=== PATIENT | male | born 1960 | race Caucasian/White ===

== ENCOUNTER 2016-12-01 00:05 | Emergency (ER) | payer MEDICARE ==
[2016-12-01] MEDS ORDERED: ASPIRIN 81 MG TABLET, CHEWABLE PO ONE (00:06)
[2016-12-01 01:04] LABS: ABSOLUTE BASOPHILS # (AUTO) 0.1 10^3/uL (0.0-0.2); ABSOLUTE EOSINOPHILS # (AUTO) 0.3 10^3/uL (0.0-0.6); ABSOLUTE LYMPHOCYTES (AUTO) 2.1 10^3/uL (0.5-4.7); ABSOLUTE MONOCYTES (AUTO) 0.9 10^3/uL (0.1-1.4); ABSOLUTE NEUT (AUTO) 7.2 10^3/uL (1.7-8.2); BASOPHILS % (AUTO) 0.7 % (0-2); EOSINOPHILS % (AUTO) 2.8 % (0-6); HEMATOCRIT 47.8 % (37.9-51.0); HEMOGLOBIN 15.6 g/dL (13.5-17.0); LYMPHOCYTES % (AUTO) 19.6 % (13-45); MEAN CORPUSCULAR HEMOGLOBIN 32.1 pg (27.0-33.4); MEAN CORPUSCULAR HGB CONC 32.7 g/dL (32.0-36.0); MEAN CORPUSCULAR VOLUME 98 fl (80-97); MONOCYTES % (AUTO) 8.8 % (3-13); RED BLOOD COUNT 4.88 10^6/uL (4.35-5.55); RED CELL DISTRIBUTION WIDTH 13.2 % (11.5-14.0); SEGMENTED NEUTROPHILS % (AUTO) 68.1 % (42-78); WHITE BLOOD COUNT 10.5 10^3/uL (4.0-10.5)
[2016-12-01 01:24] LABS: PROTHROMBIN TIME 12.4 SEC (11.4-15.4)
[2016-12-01 01:32] LABS: CREATINE KINASE MB 1.24 ng/mL (<4.55); TROPONIN I 0.016 ng/mL
[2016-12-01 01:48] LABS: ALANINE AMINOTRANSFERASE 61 U/L (21-72); ALBUMIN 3.6 g/dL (3.5-5.0); ALKALINE PHOSPHATASE 87 U/L (38-126); ANION GAP 11 (5-19); ASPARTATE AMINO TRANSFERASE 27 U/L (17-59); BILIRUBIN,TOTAL 0.6 mg/dL (0.2-1.3); BLOOD UREA NITROGEN 16 mg/dL (7-20); CALCIUM 9.3 mg/dL (8.4-10.2); CARBON DIOXIDE 24 mmol/L (22-30); CHLORIDE 104 mmol/L (98-107); CREATINE KINASE 127 U/L (55-170); CREATININE RESULT 0.93 mg/dL (0.52-1.25); GLUCOSE 107 mg/dL (75-110); POTASSIUM 3.8 mmol/L (3.6-5.0); SODIUM 138.5 mmol/L (137-145); TOTAL PROTEIN 6.3 g/dL (6.3-8.2)
[2016-12-01] MEDS ORDERED: ALBUTEROL SULFATE 0.083% NEB 2.5 MG/3 ML AMPUL NEB ONE (01:57)
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
[2016-12-01] MEDS ORDERED: NORMAL SALINE 1000 ML 1,000 ML IV ONE (10:25)
--- NOTE | 2016-12-01 11:12 | ER Document Report ---
Doctor's Note Notes: 12/01/16 11:11 pt reevalauted and is stable at this time transport is here for trhe patient
[2016-12-01 11:21] VITALS: BP 118/86
--- NOTE | 2016-12-01 12:53 | EKG REPORT ---
SEVERITY:- ABNORMAL ECG - SINUS RHYTHM NONSPECIFIC INTRAVENTRICULAR CONDUCTION DELAY : Confirmed by: Odalis Peters MD 01-Dec-2016 12:52:43
== END 2016-12-01 11:21 | disposition short-term general hospital (02) ==
LOC: ER 00:05
DX: R07.9 Chest pain, unspecified (principal); F17.200 Nicotine dependence, unspecified, uncomplicated; E78.00 Pure hypercholesterolemia, unspecified; I10 Essential (primary) hypertension; I25.2 Old myocardial infarction; Z95.0 Presence of cardiac pacemaker; Z88.6 Allergy status to analgesic agent
CPT/HCPCS: 93005; 94640; 99285; 36415; 82553; 82550; 85025; 85610; 80053; 84484; 71010; 93010; A9270 ×2; J7030

== ENCOUNTER 2017-09-30 16:19 | Emergency (ER) | payer MEDICARE, MEDICAID ==
[2017-09-30 16:44] VITALS: BP 127/68
[2017-09-30] MEDS ORDERED: CEFTRIAXONE INJ 1000 MG VIAL IM ONE (18:25)
[2017-09-30] MEDS ORDERED: LIDOCAINE 1% INJ-PF (10 MG/ML) 30 ML SDV INJ ONE (18:25)
[2017-09-30] MEDS ORDERED: NYSTATIN/TRIAMCIN OINTMENT 15 GM TP ONE (18:25)
[2017-09-30] MEDS ORDERED: AZITHROMYCIN 250 MG TABLET PO ONE (18:26)
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
[2017-09-30] MEDS ORDERED: NYSTATIN/TRIAMCIN OINTMENT 15 GM ONE (18:49)
[2017-09-30 18:56] LABS: APPEARANCE,URINE CLEAR; BILIRUBIN,URINE NEGATIVE (NEGATIVE); GLUCOSE, URINE NEGATIVE (NEGATIVE); KETONES,URINE NEGATIVE (NEGATIVE); LEUKOCYTE ESTERASE,URINE TRACE (NEGATIVE); NITRITE,URINE NEGATIVE (NEGATIVE); PROTEIN,URINE NEGATIVE (NEGATIVE); URINE SPECIFIC GRAVITY 1.027
== END 2017-09-30 19:44 | disposition home or self-care (01) ==
LOC: ER 16:19
DX: N48.89 Other specified disorders of penis (principal); N48.1 Balanitis; F17.210 Nicotine dependence, cigarettes, uncomplicated; E78.00 Pure hypercholesterolemia, unspecified; I10 Essential (primary) hypertension; Z95.810 Presence of automatic (implantable) cardiac defibrillator; Z90.49 Acquired absence of other specified parts of digestive tract; Z88.6 Allergy status to analgesic agent
CPT/HCPCS: 99283; 96372; 87070; 87205; 87210; 87075; 87077; 81001; 87186; A9270; J3490 ×2; J0696

== ENCOUNTER 2019-07-29 09:32 | Day surgery (SDC) | payer MEDICARE, MEDICAID ==
[~2019-07-29 09:32] MED LIST: PROPOFOL INJ 200 MG/20 ML VIAL IV ONE
[2019-07-29 12:00] VITALS: BP 105/58
--- NOTE | 2019-07-29 14:03 | Operative Report ---
Operative Report DATE OF SURGERY: 07/29/19 Operative Report: The risks, benefits and alternatives of the procedure including the risk of bleeding, perforation requiring surgery have been explained to the patient in detail and informed consent has been obtained. Patient is placed in a left, lateral decubital position. Timeout was called. Propofol medication is administered. Rectal examination is done which did not reveal any masses, tears or fissures. An Olympus videoscope was introduced into the patient's rectum. Scope was then carefully advanced all the way to the cecum. Cecum was identified by the usual anatomical landmarks including the ileocecal valve as well as the appendiceal office. Photodocumentation is obtained. Scope was then sequentially pulled back via the various segments of the colon including the ascending colon, hepatic flexure, transverse colon, splenic flexure, descending colon and finally into the rectosigmoid portions of the colon. Retroflexion maneuvers performed. PREOPERATIVE DIAGNOSIS: Personal history of polyp POSTOPERATIVE DIAGNOSIS: Descending colon polyp that was removed via snare polypectomy and retrieved. Internal hemorrhoids OPERATION: Colonoscopy with snare polypectomy SURGEON: MITZY MIDDLETON ANESTHESIA: LMAC TISSUE REMOVED OR ALTERED: As noted above. COMPLICATIONS: None. ESTIMATED BLOOD LOSS: None. INTRAOPERATIVE FINDINGS: As noted above. PROCEDURE: Patient tolerated the procedure well. No immediate postprocedure complications are noted. Patient is discharged in good condition. Discharge date 07/29/2019. Discharge diet: Regular. Discharge activity: Regular. 2 to 3-week follow-up to discuss findings. Patient is instructed to call the office or proceed to the emergency room should there be any further questions. Wait on the pathology. 5-year surveillance colonoscopy.
== END 2019-07-29 12:00 | disposition home or self-care (01) ==
LOC: END 09:32
PROVIDERS: ATTEND Internal Medicine Gastroenterology
DX: D12.4 Benign neoplasm of descending colon (principal); K64.8 Other hemorrhoids; Z86.010 Personal history of colon polyps; Z80.0 Family history of malignant neoplasm of digestive organs; E78.5 Hyperlipidemia, unspecified; I25.10 Atherosclerotic heart disease of native coronary artery without angina pectoris; K21.9 Gastro-esophageal reflux disease without esophagitis; F17.210 Nicotine dependence, cigarettes, uncomplicated; Z79.82 Long term (current) use of aspirin; Z79.899 Other long term (current) drug therapy
CPT/HCPCS: 45385; 88305 ×2; J2704; 811

== ENCOUNTER 2019-08-10 15:41 | Emergency (ER) | payer MEDICARE, MEDICAID ==
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
--- NOTE | 2019-08-10 16:14 | RADIOLOGY REPORT (SQ) ---
EXAM DESCRIPTION: CHEST SINGLE VIEW COMPLETED DATE/TIME: 08/10/2019 4:03 pm REASON FOR STUDY: dyspnea COMPARISON: 12/01/2016. EXAM PARAMETERS: NUMBER OF VIEWS: One view. TECHNIQUE: Single frontal radiographic view of the chest acquired. RADIATION DOSE: NA LIMITATIONS: None. FINDINGS: LUNGS AND PLEURA: No opacities, masses or pneumothorax. No pleural effusion. MEDIASTINUM AND HILAR STRUCTURES: No masses. Contour normal. HEART AND VASCULAR STRUCTURES: Heart normal in size. Normal vasculature. BONES: No acute findings. Old right rib fracture. HARDWARE: Defibrillator. OTHER: No other significant finding. IMPRESSION: NO ACUTE RADIOGRAPHIC FINDING IN THE CHEST. TECHNICAL DOCUMENTATION: JOB ID: [id number] [employer]- All Rights Reserved Reading location - IP/workstation name: [email or web address]
[2019-08-10] MEDS ORDERED: DILTIAZEM HCL INJ 25 MG/5 ML VIAL IV ONE (16:18)
[2019-08-10] MEDS ORDERED: DILTIAZEM HCL/D5W 125 MG/125 ML RTUINJ IV PRN (16:19)
[2019-08-10 16:24] LABS: ABSOLUTE BASOPHILS # (AUTO) 0.1 10^3/uL (0.0-0.2); ABSOLUTE EOSINOPHILS # (AUTO) 0.2 10^3/uL (0.0-0.6); ABSOLUTE LYMPHOCYTES (AUTO) 2.5 10^3/uL (0.5-4.7); ABSOLUTE MONOCYTES (AUTO) 1.1 10^3/uL (0.1-1.4); ABSOLUTE NEUT (AUTO) 9.9 10^3/uL (1.7-8.2); BASOPHILS % (AUTO) 0.6 % (0-2); EOSINOPHILS % (AUTO) 1.6 % (0-6); HEMATOCRIT 49.4 % (37.9-51.0); HEMOGLOBIN 16.9 g/dL (13.5-17.0); LYMPHOCYTES % (AUTO) 18.2 % (13-45); MEAN CORPUSCULAR HEMOGLOBIN 32.3 pg (27.0-33.4); MEAN CORPUSCULAR HGB CONC 34.3 g/dL (32.0-36.0); MEAN CORPUSCULAR VOLUME 94 fl (80-97); MONOCYTES % (AUTO) 7.6 % (3-13); PLATELET COUNT 285 10^3/uL (150-450); RED BLOOD COUNT 5.24 10^6/uL (4.35-5.55); RED CELL DISTRIBUTION WIDTH 13.3 % (11.5-14.0); TOTAL CELLS COUNTED % (AUTO) 100 %; WHITE BLOOD COUNT 13.8 10^3/uL (4.0-10.5)
[2019-08-10 16:47] LABS: INTERNATIONAL RATION (INR) 0.99; PROTHROMBIN TIME 13.1 SEC (11.4-15.4)
[2019-08-10 17:18] LABS: ALBUMIN 4.4 g/dL (3.5-5.0); ALKALINE PHOSPHATASE 102 U/L (38-126); ANION GAP 12 (5-19); ASPARTATE AMINO TRANSFERASE 41 U/L (17-59); BILIRUBIN,DIRECT 0.1 mg/dL (0.0-0.4); BLOOD UREA NITROGEN 14 mg/dL (7-20); CALCIUM 9.9 mg/dL (8.4-10.2); CARBON DIOXIDE 22 mmol/L (22-30); CHLORIDE 104 mmol/L (98-107); GLUCOSE 117 mg/dL (75-110); POTASSIUM 3.9 mmol/L (3.6-5.0); TOTAL PROTEIN 7.5 g/dL (6.3-8.2)
[2019-08-10 17:34] LABS: TROPONIN I 0.417 ng/mL
[2019-08-10] MEDS ORDERED: ASPIRIN 81 MG TABLET, CHEWABLE PO ONE (17:42)
[2019-08-10] MEDS ORDERED: DILTIAZEM HCL 120 MG CAP.SR.24H PO ONE (18:19)
[2019-08-10] MEDS ORDERED: METOPROLOL SUCCINATE 50 MG TAB.SR.24H PO ONE (18:19)
[2019-08-10] MEDS ORDERED: METOPROLOL TARTRATE PF/INJ 5 MG/5 ML SDV IV ONE (19:13)
--- NOTE | 2019-08-10 19:18 | EKG REPORT ---
SEVERITY:- ABNORMAL ECG - AFIB/FLUT AND V-PACED COMPLEXES LOW VOLTAGE IN FRONTAL LEADS NONSPECIFIC T ABNORMALITIES, LATERAL LEADS BORDERLINE PROLONGED QT INTERVAL : Confirmed by: Odalis Peters MD 10-Aug-2019 19:17:59
[2019-08-10 21:49] VITALS: BP 107/59
== END 2019-08-10 21:45 | disposition short-term general hospital (02) ==
LOC: ER 15:41
DX: I48.91 Unspecified atrial fibrillation (principal); I21.4 Non-ST elevation (NSTEMI) myocardial infarction; Z95.810 Presence of automatic (implantable) cardiac defibrillator; I25.10 Atherosclerotic heart disease of native coronary artery without angina pectoris; I25.2 Old myocardial infarction; R07.89 Other chest pain; R06.02 Shortness of breath; Z95.5 Presence of coronary angioplasty implant and graft; Z87.891 Personal history of nicotine dependence; Z88.6 Allergy status to analgesic agent
CPT/HCPCS: 93005; 36415; 83735; 85025; 85610; 80053; 84484; 83880; 71045; 93010; A9270 ×3; J3490; 96365; 96366; 99291

== ENCOUNTER 2019-08-26 11:12 | Observation (INO) | payer MEDICARE, MEDICAID ==
[2019-08-26] MEDS ORDERED: ASPIRIN 81 MG TABLET, CHEWABLE PO ONE (11:13)
[2019-08-26 11:45] LABS: APPEARANCE,URINE CLEAR; BILIRUBIN,URINE NEGATIVE (NEGATIVE); COLOR,URINE STRAW; GLUCOSE, URINE NEGATIVE (NEGATIVE); KETONES,URINE NEGATIVE (NEGATIVE); LEUKOCYTE ESTERASE,URINE NEGATIVE (NEGATIVE); NITRITE,URINE NEGATIVE (NEGATIVE); PROTEIN,URINE NEGATIVE (NEGATIVE); URINE SPECIFIC GRAVITY 1.009; UROBILINOGEN,URINE NEGATIVE mg/dL (<2.0)
[2019-08-26 11:45] LABS: HEMATOCRIT 48.2 % (37.9-51.0); HEMOGLOBIN 16.3 g/dL (13.5-17.0); MEAN CORPUSCULAR HGB CONC 33.8 g/dL (32.0-36.0); MEAN CORPUSCULAR VOLUME 95 fl (80-97); PLATELET COUNT 315 10^3/uL (150-450); RED BLOOD COUNT 5.09 10^6/uL (4.35-5.55); RED CELL DISTRIBUTION WIDTH 12.8 % (11.5-14.0); WHITE BLOOD COUNT 11.1 10^3/uL (4.0-10.5)
[2019-08-26 11:57] LABS: ALBUMIN 4.4 g/dL (3.5-5.0); ALKALINE PHOSPHATASE 94 U/L (38-126); ANION GAP 10 (5-19); ASPARTATE AMINO TRANSFERASE 39 U/L (17-59); BILIRUBIN,DIRECT 0.2 mg/dL (0.0-0.4); BILIRUBIN,TOTAL 0.8 mg/dL (0.2-1.3); BLOOD UREA NITROGEN 12 mg/dL (7-20); CARBON DIOXIDE 25 mmol/L (22-30); CHLORIDE 104 mmol/L (98-107); CREATINE KINASE 119 U/L (55-170); GLUCOSE 115 mg/dL (75-110); POTASSIUM 4.9 mmol/L (3.6-5.0); TOTAL PROTEIN 7.7 g/dL (6.3-8.2)
[2019-08-26 12:06] LABS: ABSOLUTE LYMPHOCYTES# (MANUAL) 2.1 10^3/uL (0.5-4.7); BASOPHILS % (MANUAL) 1 % (0-2); EOSINOPHILS % (MANUAL) 3 % (0-6); LYMPHOCYTES % (MANUAL) 14 % (13-45); MONOCYTES % (MANUAL) 9 % (3-13); RBC MORPHOLOGY COMMENT NORMO-CYTIC/CHROMIC; SEGMENTED NEUTROPHILS % (MAN) 68 % (42-78); TOTAL CELLS COUNTED 100
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
[2019-08-26 12:07] LABS: PLATELET COMMENT ADEQUATE
[2019-08-26 12:11] LABS: CREATINE KINASE MB 2.16 ng/mL (<4.55)
[2019-08-26 12:15] LABS: TROPONIN I < 0.012 ng/mL
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
--- NOTE | 2019-08-26 13:30 | RADIOLOGY REPORT (SQ) ---
EXAM DESCRIPTION: CHEST 2 VIEWS COMPLETED DATE/TIME: 08/26/2019 1:00 pm REASON FOR STUDY: CP COMPARISON: 08/10/2019. EXAM PARAMETERS: NUMBER OF VIEWS: two views TECHNIQUE: Digital Frontal and Lateral radiographic views of the chest acquired. RADIATION DOSE: NA LIMITATIONS: none FINDINGS: LUNGS AND PLEURA: No opacities, masses or pneumothorax. No pleural effusion. MEDIASTINUM AND HILAR STRUCTURES: No masses or contour abnormalities. HEART AND VASCULAR STRUCTURES: Heart normal size. No evidence for failure. BONES: No acute findings. Old rib fractures. HARDWARE: Defibrillator. OTHER: No other significant finding. IMPRESSION: NO ACUTE RADIOGRAPHIC FINDING IN THE CHEST. TECHNICAL DOCUMENTATION: JOB ID: [id number] [employer]- All Rights Reserved Reading location - IP/workstation name: [email or web address]
[2019-08-26] MEDS ORDERED: NITROGLYCERIN 2% OINTMENT 1 GM PACKET TP ONE (13:39)
[2019-08-26] MEDS ORDERED: ONDANSETRON HCL INJ/PF 4 MG/2 ML SDV IV PRN (14:19)
[2019-08-26] MEDS ORDERED: ACETAMINOPHEN 325 MG TABLET PO PRN (14:19)
[2019-08-26] MEDS ORDERED: MAG HYDROX/AL HYDROX/SIMETH SUSP 30 ML UDCUP PO PRN (14:19)
[2019-08-26] MEDS ORDERED: NORMAL SALINE 1000 ML 1,000 ML IV PRN (14:19)
[2019-08-26] MEDS ORDERED: ZOLPIDEM TARTRATE 5 MG TABLET PO PRN (14:19)
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
--- NOTE | 2019-08-26 16:55 | EKG REPORT ---
SEVERITY:- ABNORMAL ECG - SINUS RHYTHM MULTIPLE ATRIAL PREMATURE COMPLEXES NONSPECIFIC INTRAVENTRICULAR CONDUCTION DELAY LOW VOLTAGE IN FRONTAL LEADS BORDERLINE R WAVE PROGRESSION, ANTERIOR LEADS : Confirmed by: Odalis Peters MD 26-Aug-2019 16:53:42
[2019-08-26] MEDS ORDERED: APIXABAN 5 MG TABLET PO SCH ×2 (18:00→22:00)
[2019-08-26] MEDS: APIXABAN 5 MG TABLET PO SCH (20:54)
[2019-08-26] MEDS: METOPROLOL TARTRATE 50 MG TABLET PO SCH (21:09)
[2019-08-26] MEDS ORDERED: (PENDING PHARMACY ID) (Sotalol Hcl [Betapace] 120 MG) PO SCH (22:00)
[2019-08-26] MEDS ORDERED: ASPIRIN 81 MG TABLET, ENT COATED PO SCH (22:00)
[2019-08-26] MEDS ORDERED: ATORVASTATIN CALCIUM 80 MG TABLET PO SCH (22:00)
[2019-08-26] MEDS ORDERED: SOTALOL HCL 80 MG TABLET PO SCH (22:00)
[2019-08-27 05:40] LABS: ANION GAP 8 (5-19); BLOOD UREA NITROGEN 13 mg/dL (7-20); CARBON DIOXIDE 26 mmol/L (22-30); CHLORIDE 103 mmol/L (98-107); GLUCOSE 103 mg/dL (75-110); POTASSIUM 4.2 mmol/L (3.6-5.0)
[2019-08-27] MEDS: APIXABAN 5 MG TABLET PO SCH (06:57)
[2019-08-27] MEDS ORDERED: SOTALOL HCL 80 MG TABLET PO SCH (07:00)
[2019-08-27] MEDS: METOPROLOL TARTRATE 50 MG TABLET PO SCH (09:35)
[2019-08-27] MEDS ORDERED: ISOSORBIDE MONONITRATE 30 MG TAB.ER.24H PO SCH (10:00)
[2019-08-27] MEDS ORDERED: ASPIRIN 81 MG TABLET, ENT COATED PO SCH (10:00)
[2019-08-27] MEDS ORDERED: LOSARTAN POTASSIUM 50 MG TABLET PO SCH (10:00)
[2019-08-27] MEDS ORDERED: CLOPIDOGREL BISULFATE 75 MG TABLET PO SCH (10:00)
[2019-08-27] MEDS ORDERED: ISOSORBIDE MONONITRATE 60 MG TAB.ER.24H PO SCH (10:00)
--- NOTE | 2019-08-27 15:33 | RADIOLOGY REPORT (SQ) ---
EXAM DESCRIPTION: BARIUM SWALLOW ESOPHAGUS COMPLETED DATE/TIME: 08/27/2019 10:30 am REASON FOR STUDY: chest pain R73.9 HYPERGLYCEMIA, UNSPECIFIED COMPARISON: None. TECHNIQUE: Under fluoroscopic guidance, patient ingested effervescent granules followed by thick and thin barium. Fluoroscopic spot images and routine radiographic images acquired and stored on PACS. 12 MM BARIUM TABLET GIVEN: Barium tablet passed easily through the esophagus and into the stomach wit hout delay. LIMITATIONS: None. FLUOROSCOPY TIME: FLUORO TIME: 1.09 minutes 7 images saved to PACS. FINDINGS: NEUROMUSCULAR COORDINATION OF SWALLOW: Normal. No aspiration. ESOPHAGEAL MOTILITY: Normal peristalsis. No esophageal spasm. ESOPHAGEAL MUCOSA: Normal mucosa without masses or ulceration. GASTRO-ESOPHAGEAL JUNCTION: Small hiatal hernia present. Gastroesophageal reflux to the level of the clavicles demonstrated. NON-GI TRACT STRUCTURES: No significant finding. OTHER: No other significant finding. IMPRESSION: SMALL HIATAL HERNIA WITH GASTROESOPHAGEAL REFLUX. OTHERWISE UNREMARKABLE STUDY. RECOMMENDATION: NONE COMMENT: None Quality ID [id number]: Final reports for procedures using fluoroscopy that document radiation exposure kathi jairo, or exposure time and number of fluorographic images (if radiation exposure indices are not avail able) TECHNICAL DOCUMENTATION: JOB ID: [id number] [employer]- All Rights Reserved Reading location - IP/workstation name: [email or web address]
[2019-08-27 16:29] VITALS: BP 126/74
--- NOTE | 2019-08-28 20:50 | PDOC DISCHARGE SUMMARY ---
Impression - Admit/DC Date/PCP Admission Date/Primary Care Provider: 08/26/19 13:48 MARBELLA LIZAMA PA-C Discharge Date: 08/27/19 - Additional Information Resuscitation Status: Full Code Discharge Diet: Cardiac Discharge Activity: Activity As Tolerated, Balance Activity w/Rest, Weigh Daily Referrals: MARBELLA LIZAMA PA-C [Primary Care Provider] - 08/28/19 9:15 am Prescriptions: Isosorbide Mononitrate [Imdur 60 mg Tablet.er] 60 mg PO DAILY #30 tab.sr.24h Home Medications: Apixaban [Eliquis 5 mg Tablet] 5 mg PO Q12 08/26/19 Aspirin [Ecotrin 81 mg EC Tablet] 81 mg PO DAILY 08/26/19 Losartan Potassium [Cozaar 50 mg Tablet] 25 mg PO DAILY 08/26/19 Metoprolol Succinate [Toprol Xl 25 mg Tab.sr] 75 mg PO Q12 08/26/19 Nitroglycerin [Nitrostat 0.4 mg (1/150 Gr) Tabs 25/Bottle] 1 tab SL Q5MP PRN 08/26/19 Pantoprazole Sodium [Protonix [address] Tablet] 20 mg PO DAILY 08/26/19 Sotalol HCl [Betapace] 120 mg PO Q12 08/26/19 Acetaminophen [Tylenol 325 mg Tablet] 650 mg PO Q4HP PRN tablet 08/27/19 Isosorbide Mononitrate [Imdur 60 mg Tablet.er] 60 mg PO DAILY #30 tab.sr.24h 08/27/19 History of Present Illiness History of Present Illness: NOE CARTWRIGHT is a 59 year old male with a past medical history of non-STEMI, hypertension, hyperlipidemia, atrial fibrillation, and obesity who presented to the emergency department with a complaint of intermittent chest pain that worsens with activity (although not consistently) associated with shortness of breath and early fatigue that has been ongoing for the previous 2 to 3 months but gradually worsened. Evaluation in the emergency department demonstrated mild leukocytosis, unremarkable chemistry, negative troponin, negative urinalysis, benign chest x- ray, and EKG demonstrating normal sinus rhythm with nonspecific interventricular conduction delay. The patient was referred to the hospitalist service for admission and management of the above-stated complaints and findings. Hospital Course Hospital Course: The patient was admitted to [facility] on continuous cardiac telemetry. Evaluation included a benign chest x-ray and follow-up barium swallow study of the esophagus to rule out evaluate for noncardiac causes of his discomfort. He was found to have a small hiatal hernia with gastroesophageal reflux. Serial troponins were negative x4. The patient's home medication regiment was continued; including home dose of Eliquis, aspirin, atorvastatin, Plavix, losartan, and metoprolol. His isosorbide was increased at continues to increase at discharge to 60 mg daily. 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 He has had no further episodes of chest discomfort and remains in sinus rhythm on continuous cardiac telemetry. He is now requesting to be discharged home with outpatient follow-up as previously scheduled. The patient is discharged home in stable condition. He is advised to continue his medications as prescribed. 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 He is encouraged to return to the emergency department as needed for concerning symptoms. Physical Exam Vital Signs: Temp Pulse Resp BP Pulse Ox 97.8 F 57 L 20 126/74 H 100 08/27/19 16:49 08/27/19 16:49 08/27/19 16:49 08/27/19 15:46 08/27/19 16:49 Intake & Output 08/26/19 08/27/19 08/28/19 06:59 06:59 06:59 Intake Total 600 1040 Output Total 460 Balance 140 1040 Weight 99.5 kg General appearance: PRESENT: no acute distress, cooperative, obese, well- developed, well-nourished Head exam: PRESENT: atraumatic, normocephalic Eye exam: PRESENT: conjunctiva pink, EOMI, PERRLA. ABSENT: scleral icterus Mouth exam: PRESENT: moist, tongue midline Respiratory exam: PRESENT: clear to auscultation etta, symmetrical, unlabored. ABSENT: rales, rhonchi, wheezes Cardiovascular exam: PRESENT: RRR, +S1, +S2. ABSENT: diastolic murmur, rubs, systolic murmur Pulses: PRESENT: normal dorsalis pedis pul Vascular exam: PRESENT: normal capillary refill GI/Abdominal exam: PRESENT: normal bowel sounds, soft. ABSENT: distended, guarding, mass, organolmegaly, rebound, tenderness Rectal exam: PRESENT: deferred Extremities exam: PRESENT: full ROM. ABSENT: calf tenderness, clubbing, pedal e rancho Musculoskeletal exam: PRESENT: ambulatory Neurological exam: PRESENT: alert, awake, oriented to person, oriented to place, oriented to time, oriented to situation, CN II-XII grossly intact. ABSENT: motor sensory deficit Psychiatric exam: PRESENT: appropriate affect, normal mood. ABSENT: homicidal ideation, suicidal ideation Skin exam: PRESENT: dry, intact, warm. ABSENT: cyanosis, rash Results Laboratory Results: WBC 11.1 10^3/uL (4.0-10.5) H 08/26/19 11:24 RBC 5.09 10^6/uL (4.35-5.55) 08/26/19 11:24 Hgb 16.3 g/dL (13.5-17.0) 08/26/19 11:24 Hct 48.2 % (37.9-51.0) 08/26/19 11:24 MCV 95 fl (80-97) 08/26/19 11:24 MCH 32.0 pg (27.0-33.4) 08/26/19 11:24 MCHC 33.8 g/dL (32.0-36.0) 08/26/19 11:24 RDW 12.8 % (11.5-14.0) 08/26/19 11:24 Plt Count 315 10^3/uL (150-450) 08/26/19 11:24 Lymph % (Auto) Not Reportable 08/26/19 11:24 [place] % (Auto) Not Reportable 08/26/19 11:24 Eos % (Auto) Not Reportable 08/26/19 11:24 Baso % (Auto) Not Reportable 08/26/19 11:24 Absolute Neuts (auto) Not Reportable 08/26/19 11:24 Absolute Lymphs (auto) Not Reportable 08/26/19 11:24 Absolute Monos (auto) Not Reportable 08/26/19 11:24 Absolute Eos (auto) Not Reportable 08/26/19 11:24 Absolute Basos (auto) Not Reportable 08/26/19 11:24 Total Counted 100 08/26/19 11:24 Seg Neutrophils % Not Reportable 08/26/19 11:24 Seg Neuts % (Manual) 68 % (42-78) 08/26/19 11:24 Lymphocytes % (Manual) 14 % (13-45) 08/26/19 11:24 Atypical Lymphs % 5 % (0) 08/26/19 11:24 Monocytes % (Manual) 9 % (3-13) 08/26/19 11:24 Eosinophils % (Manual) 3 % (0-6) 08/26/19 11:24 Basophils % (Manual) 1 % (0-2) 08/26/19 11:24 Abs Neuts (Manual) 7.5 10^3/uL (1.7-8.2) 08/26/19 11:24 Abs Lymphs (Manual) 2.1 10^3/uL (0.5-4.7) 08/26/19 11:24 Abs Monocytes (Manual) 1.0 10^3/uL (0.1-1.4) 08/26/19 11:24 Absolute Eos (Manual) 0.3 10^3/uL (0.0-0.6) 08/26/19 11:24 Abs Basophils (Manual) 0.1 10^3/uL (0.0-0.2) 08/26/19 11:24 Platelet Comment ADEQUATE 08/26/19 11:24 RBC Morph Comment NORMO-CYTIC/CHROMIC 08/26/19 11:24 Sodium 137.1 mmol/L (137-145) 08/27/19 03:50 Potassium 4.2 mmol/L (3.6-5.0) 08/27/19 03:50 Chloride 103 mmol/L (98-107) 08/27/19 03:50 Carbon Dioxide 26 mmol/L (22-30) 08/27/19 03:50 Anion Gap 8 (5-19) 08/27/19 03:50 BUN 13 mg/dL (7-20) 08/27/19 03:50 Creatinine 1.05 mg/dL (0.52-1.25) 08/27/19 03:50 Est GFR ( Amer) > 60 (>60) 08/27/19 03:50 Est GFR (MDRD) Non-Af > 60 (>60) 08/27/19 03:50 Glucose 103 mg/dL (75-110) 08/27/19 03:50 Hemoglobin A1c % 6.0 % (4.7-6.0) 08/27/19 03:50 Calcium 9.0 mg/dL (8.4-10.2) 08/27/19 03:50 Total Bilirubin 0.8 mg/dL (0.2-1.3) 08/26/19 11:24 Direct Bilirubin 0.2 mg/dL (0.0-0.4) 08/26/19 11:24 Neonat Total Bilirubin Not Reportable 08/26/19 11:24 Neonat Direct Bilirubin Not Reportable 08/26/19 11:24 Neonat Indirect Bili Not Reportable 08/26/19 11:24 AST 39 U/L (17-59) 08/26/19 11:24 ALT 63 U/L (<50) 08/26/19 11:24 Alkaline Phosphatase 94 U/L (38-126) 08/26/19 11:24 Creatine Kinase 119 U/L (55-170) 08/26/19 11:24 CK-MB (CK-2) 2.16 ng/mL (<4.55) 08/26/19 11:24 Troponin I 0.017 ng/mL 08/27/19 03:50 Total Protein 7.7 g/dL (6.3-8.2) 08/26/19 11:24 Albumin 4.4 g/dL (3.5-5.0) 08/26/19 11:24 Urine Color STRAW 08/26/19 11:33 Urine Appearance CLEAR 08/26/19 11:33 Urine pH 7.0 (5.0-9.0) 08/26/19 11:33 Ur Specific [place] 1.009 08/26/19 11:33 Urine Protein NEGATIVE mg/dL (NEGATIVE) 08/26/19 11:33 Urine Glucose (UA) NEGATIVE mg/dL (NEGATIVE) 08/26/19 11:33 Urine Ketones NEGATIVE mg/dL (NEGATIVE) 08/26/19 11:33 Urine Blood NEGATIVE (NEGATIVE) 08/26/19 11:33 Urine Nitrite NEGATIVE (NEGATIVE) 08/26/19 11:33 Urine Bilirubin NEGATIVE (NEGATIVE) 08/26/19 11:33 Urine Urobilinogen NEGATIVE mg/dL (<2.0) 08/26/19 11:33 Ur Leukocyte Esterase NEGATIVE (NEGATIVE) 08/26/19 11:33 Urine WBC (Auto) 1 /HPF 08/26/19 11:33 Urine Ascorbic Acid NEGATIVE (NEGATIVE) 08/26/19 11:33 08/26/19 08/26/19 08/26/19 11:24 15:13 20:30 CK-MB (CK-2) 2.16 Troponin I < 0.012 < 0.012 0.013 08/27/19 03:50 CK-MB (CK-2) Troponin I 0.017 Impressions: Chest X-Ray 08/26/19 12:26 IMPRESSION: NO ACUTE RADIOGRAPHIC FINDING IN THE CHEST. Esophagus X-Ray 08/27/19 00:00 IMPRESSION: SMALL HIATAL HERNIA WITH GASTROESOPHAGEAL REFLUX. OTHERWISE UNREMARKABLE STUDY. Plan Plan of Treatment: Follow up with primary care provider within 1 week. Follow up with established director of manufacturing operations as scheduled. Consider seeing a Guard Lieutenant to further evaluate reflux and hiatal hernia. Take medications as prescribed. Return to the emergency department as needed for concerning symptoms. Time Spent: Greater than 30 Minutes Stroke Is this a Stroke Patient?: No Acute Heart Failure - Is this a Heart Failure Patient?: No
== END 2019-08-27 17:11 | disposition home or self-care (01) ==
LOC: ER 11:12 → EH 13:48 → 3W 15:45
PROVIDERS: ADMIT Family Medicine; ATTEND Family Medicine
DX: R07.9 Chest pain, unspecified (principal); K44.9 Diaphragmatic hernia without obstruction or gangrene; K21.9 Gastro-esophageal reflux disease without esophagitis; E78.5 Hyperlipidemia, unspecified; I10 Essential (primary) hypertension; I48.91 Unspecified atrial fibrillation; I25.110 Atherosclerotic heart disease of native coronary artery with unstable angina pectoris; D72.829 Elevated white blood cell count, unspecified; M19.90 Unspecified osteoarthritis, unspecified site; F17.210 Nicotine dependence, cigarettes, uncomplicated; R73.9 Hyperglycemia, unspecified; R06.02 Shortness of breath; R53.83 Other fatigue; E66.9 Obesity, unspecified; I25.2 Old myocardial infarction; Z79.01 Long term (current) use of anticoagulants; Z79.82 Long term (current) use of aspirin; Z79.02 Long term (current) use of antithrombotics/antiplatelets; Z82.49 Family history of ischemic heart disease and other diseases of the circulatory system; Z88.6 Allergy status to analgesic agent; Z95.5 Presence of coronary angioplasty implant and graft; Z95.810 Presence of automatic (implantable) cardiac defibrillator
CPT/HCPCS: 93005; 99291; 36415 ×2; 82553; 82550; 85025; 80048; 80053; 81001; 84484 ×2; 83036; 71046; 74220; 93010; G0378 ×3; A9270 ×10; J3490 ×2; J7030

== ENCOUNTER 2019-08-30 10:43 | Emergency (ER) | payer MEDICARE, MEDICAID ==
[2019-08-30] MEDS ORDERED: ASPIRIN 81 MG TABLET, CHEWABLE PO ONE (11:26)
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
[2019-08-30 11:53] LABS: ABSOLUTE BASOPHILS # (AUTO) 0.1 10^3/uL (0.0-0.2); ABSOLUTE EOSINOPHILS # (AUTO) 0.3 10^3/uL (0.0-0.6); ABSOLUTE LYMPHOCYTES (AUTO) 1.8 10^3/uL (0.5-4.7); ABSOLUTE MONOCYTES (AUTO) 0.7 10^3/uL (0.1-1.4); ABSOLUTE NEUT (AUTO) 7.2 10^3/uL (1.7-8.2); EOSINOPHILS % (AUTO) 2.9 % (0-6); HEMATOCRIT 49.2 % (37.9-51.0); LYMPHOCYTES % (AUTO) 17.5 % (13-45); MEAN CORPUSCULAR HEMOGLOBIN 32.6 pg (27.0-33.4); MEAN CORPUSCULAR HGB CONC 34.6 g/dL (32.0-36.0); MEAN CORPUSCULAR VOLUME 94 fl (80-97); MONOCYTES % (AUTO) 7.1 % (3-13); PLATELET COUNT 316 10^3/uL (150-450); RED BLOOD COUNT 5.22 10^6/uL (4.35-5.55); RED CELL DISTRIBUTION WIDTH 13.3 % (11.5-14.0); SEGMENTED NEUTROPHILS % (AUTO) 71.5 % (42-78); TOTAL CELLS COUNTED % (AUTO) 100 %; WHITE BLOOD COUNT 10.1 10^3/uL (4.0-10.5)
[2019-08-30 11:54] LABS: VENOUS BLOOD BASE EXCESS 1.9 mmol/L; VENOUS BLOOD HCO3 29.1 mmol/L (20-32); VENOUS BLOOD PCO2 54.5 mmHg (35-63); VENOUS BLOOD PH 7.35 (7.30-7.42)
[2019-08-30 11:57] LABS: APPEARANCE,URINE CLEAR; BILIRUBIN,URINE NEGATIVE (NEGATIVE); COLOR,URINE STRAW; GLUCOSE, URINE NEGATIVE (NEGATIVE); KETONES,URINE NEGATIVE (NEGATIVE); LEUKOCYTE ESTERASE,URINE NEGATIVE (NEGATIVE); NITRITE,URINE NEGATIVE (NEGATIVE); PROTEIN,URINE NEGATIVE (NEGATIVE); URINE SPECIFIC GRAVITY 1.002; UROBILINOGEN,URINE NEGATIVE mg/dL (<2.0)
[2019-08-30 12:03] LABS: INTERNATIONAL RATION (INR) 0.97; PROTHROMBIN TIME 12.9 SEC (11.4-15.4)
[2019-08-30 12:32] LABS: ALBUMIN 4.5 g/dL (3.5-5.0); ALKALINE PHOSPHATASE 87 U/L (38-126); ANION GAP 9 (5-19); ASPARTATE AMINO TRANSFERASE 37 U/L (17-59); BILIRUBIN,DIRECT 0.1 mg/dL (0.0-0.4); BILIRUBIN,TOTAL 1.1 mg/dL (0.2-1.3); BLOOD UREA NITROGEN 16 mg/dL (7-20); CALCIUM 10.1 mg/dL (8.4-10.2); CARBON DIOXIDE 28 mmol/L (22-30); CHLORIDE 100 mmol/L (98-107); GLUCOSE 114 mg/dL (75-110); POTASSIUM 4.9 mmol/L (3.6-5.0); TOTAL PROTEIN 7.6 g/dL (6.3-8.2)
--- NOTE | 2019-08-30 12:47 | RADIOLOGY REPORT (SQ) ---
EXAM DESCRIPTION: CHEST 2 VIEWS COMPLETED DATE/TIME: 08/30/2019 12:30 pm REASON FOR STUDY: SOB COMPARISON: PA and lateral views of the chest from 08/26/2019. EXAM PARAMETERS: NUMBER OF VIEWS: two views TECHNIQUE: Digital Frontal and Lateral radiographic views of the chest acquired. RADIATION DOSE: NA LIMITATIONS: none FINDINGS: LUNGS AND PLEURA: No consolidation, pleural effusion or pneumothorax. MEDIASTINUM AND HILAR STRUCTURES: No mediastinal or hilar contour abnormality. HEART AND VASCULAR STRUCTURES: The cardiac silhouette and pulmonary vasculature are within normal rascon its. BONES: Chronic fracture deformity of the right 5th rib. HARDWARE: Left subclavian vein approach ICD. OTHER: No other finding. IMPRESSION: No acute cardiopulmonary process. TECHNICAL DOCUMENTATION: JOB ID: [id number] [employer]- All Rights Reserved Reading location - IP/workstation name: [email or web address]
[2019-08-30] MEDS ORDERED: ACETAMINOPHEN 325 MG TABLET PO ONE (15:31)
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
[2019-08-30 16:50] VITALS: BP 100/83
--- NOTE | 2019-08-30 19:06 | EKG REPORT ---
SEVERITY:- ABNORMAL ECG - SINUS RHYTHM NONSPECIFIC INTRAVENTRICULAR CONDUCTION DELAY LOW VOLTAGE IN FRONTAL LEADS BORDERLINE R WAVE PROGRESSION, ANTERIOR LEADS : Confirmed by: Odalis Peters MD 30-Aug-2019 19:06:16
== END 2019-08-30 16:49 | disposition home or self-care (01) ==
LOC: ER 10:43
DX: R00.1 Bradycardia, unspecified (principal); I11.9 Hypertensive heart disease without heart failure; I43 Cardiomyopathy in diseases classified elsewhere; R42 Dizziness and giddiness; R07.89 Other chest pain; I25.10 Atherosclerotic heart disease of native coronary artery without angina pectoris; I25.2 Old myocardial infarction; Z95.810 Presence of automatic (implantable) cardiac defibrillator; Z79.899 Other long term (current) drug therapy; F17.200 Nicotine dependence, unspecified, uncomplicated; Z88.5 Allergy status to narcotic agent; Z82.49 Family history of ischemic heart disease and other diseases of the circulatory system
CPT/HCPCS: 93005; 99284; 36415; 85025; 85610; 80053; 81001; 84484; 82803; 83605; 71046; 93010; A9270

== ENCOUNTER 2019-09-02 12:21 | Emergency (ER) | payer MEDICARE, MEDICAID ==
[2019-09-02] MEDS ORDERED: ASPIRIN 81 MG TABLET, CHEWABLE PO ONE (12:24)
[2019-09-02 12:50] LABS: ABSOLUTE BASOPHILS # (AUTO) 0.1 10^3/uL (0.0-0.2); ABSOLUTE EOSINOPHILS # (AUTO) 0.2 10^3/uL (0.0-0.6); ABSOLUTE LYMPHOCYTES (AUTO) 1.8 10^3/uL (0.5-4.7); ABSOLUTE MONOCYTES (AUTO) 0.8 10^3/uL (0.1-1.4); ABSOLUTE NEUT (AUTO) 6.9 10^3/uL (1.7-8.2); BASOPHILS % (AUTO) 0.8 % (0-2); EOSINOPHILS % (AUTO) 1.6 % (0-6); HEMATOCRIT 46.3 % (37.9-51.0); HEMOGLOBIN 16.1 g/dL (13.5-17.0); LYMPHOCYTES % (AUTO) 18.2 % (13-45); MEAN CORPUSCULAR HEMOGLOBIN 32.8 pg (27.0-33.4); MEAN CORPUSCULAR HGB CONC 34.7 g/dL (32.0-36.0); MEAN CORPUSCULAR VOLUME 95 fl (80-97); MONOCYTES % (AUTO) 8.4 % (3-13); PLATELET COUNT 258 10^3/uL (150-450); RED BLOOD COUNT 4.89 10^6/uL (4.35-5.55); RED CELL DISTRIBUTION WIDTH 13.2 % (11.5-14.0); TOTAL CELLS COUNTED % (AUTO) 100 %; WHITE BLOOD COUNT 9.7 10^3/uL (4.0-10.5)
--- NOTE | 2019-09-02 13:12 | EKG REPORT ---
SEVERITY:- ABNORMAL ECG - SINUS RHYTHM MULTIPLE ATRIAL PREMATURE COMPLEXES NONSPECIFIC INTRAVENTRICULAR CONDUCTION DELAY LOW VOLTAGE IN FRONTAL LEADS BORDERLINE R WAVE PROGRESSION, ANTERIOR LEADS : Confirmed by: Feng Fried MD 02-Sep-2019 13:11:00
[2019-09-02 13:13] LABS: ALBUMIN 4.1 g/dL (3.5-5.0); ALKALINE PHOSPHATASE 81 U/L (38-126); ANION GAP 9 (5-19); ASPARTATE AMINO TRANSFERASE 28 U/L (17-59); BILIRUBIN,DIRECT 0.1 mg/dL (0.0-0.4); BILIRUBIN,TOTAL 0.6 mg/dL (0.2-1.3); BLOOD UREA NITROGEN 16 mg/dL (7-20); CALCIUM 9.7 mg/dL (8.4-10.2); CARBON DIOXIDE 24 mmol/L (22-30); CHLORIDE 103 mmol/L (98-107); CREATINE KINASE 104 U/L (55-170); GLUCOSE 110 mg/dL (75-110); POTASSIUM 4.7 mmol/L (3.6-5.0); TOTAL PROTEIN 7.1 g/dL (6.3-8.2)
[2019-09-02 13:23] LABS: CREATINE KINASE MB 1.75 ng/mL (<4.55); TROPONIN I 0.016 ng/mL
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
--- NOTE | 2019-09-02 16:03 | RADIOLOGY REPORT (SQ) ---
EXAM DESCRIPTION: CHEST SINGLE VIEW COMPLETED DATE/TIME: 09/02/2019 3:46 pm REASON FOR STUDY: CP COMPARISON: PA and lateral views of the chest from 08/30/2019 EXAM PARAMETERS: NUMBER OF VIEWS: One view. TECHNIQUE: Single frontal radiographic view of the chest acquired. RADIATION DOSE: NA LIMITATIONS: None. FINDINGS: LUNGS AND PLEURA: Low inspiratory lung volumes without a superimposed consolidation, pleur al effusion or pneumothorax. MEDIASTINUM AND HILAR STRUCTURES: Stable mediastinal and hilar contours. HEART AND VASCULAR STRUCTURES: The cardiac silhouette and pulmonary vasculature within normal limits given the low inspiratory lung volumes. BONES: No acute findings. HARDWARE: Intact left subclavian vein approach ICD. OTHER: No other finding. IMPRESSION: Low inspiratory lung volumes without a superimposed acute cardiopulmonary process. TECHNICAL DOCUMENTATION: JOB ID: [id number] [employer]- All Rights Reserved Reading location - IP/workstation name: [email or web address]
[2019-09-02 18:06] VITALS: BP 129/79
== END 2019-09-02 18:13 | disposition home or self-care (01) ==
LOC: ER 12:21
DX: R07.9 Chest pain, unspecified (principal); I25.10 Atherosclerotic heart disease of native coronary artery without angina pectoris; E78.00 Pure hypercholesterolemia, unspecified; I10 Essential (primary) hypertension; I25.2 Old myocardial infarction; Z95.810 Presence of automatic (implantable) cardiac defibrillator; Z88.5 Allergy status to narcotic agent; Z79.02 Long term (current) use of antithrombotics/antiplatelets; Z79.899 Other long term (current) drug therapy; Z79.82 Long term (current) use of aspirin; Z87.891 Personal history of nicotine dependence; Z82.49 Family history of ischemic heart disease and other diseases of the circulatory system
CPT/HCPCS: 36415; 71045; 80053; 82550; 82553; 84484; 85025; 93005; 93010; 99285

== ENCOUNTER 2019-09-17 17:15 | Observation (INO) | payer MEDICARE, MEDICAID ==
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
[2019-09-17 18:19] LABS: ABSOLUTE BASOPHILS # (AUTO) 0.1 10^3/uL (0.0-0.2); ABSOLUTE EOSINOPHILS # (AUTO) 0.2 10^3/uL (0.0-0.6); ABSOLUTE LYMPHOCYTES (AUTO) 1.5 10^3/uL (0.5-4.7); ABSOLUTE MONOCYTES (AUTO) 0.7 10^3/uL (0.1-1.4); ABSOLUTE NEUT (AUTO) 7.8 10^3/uL (1.7-8.2); BASOPHILS % (AUTO) 0.7 % (0-2); HEMATOCRIT 44.2 % (37.9-51.0); HEMOGLOBIN 15.5 g/dL (13.5-17.0); LYMPHOCYTES % (AUTO) 14.6 % (13-45); MEAN CORPUSCULAR HEMOGLOBIN 33.1 pg (27.0-33.4); MEAN CORPUSCULAR HGB CONC 35.1 g/dL (32.0-36.0); MEAN CORPUSCULAR VOLUME 94 fl (80-97); MONOCYTES % (AUTO) 7.3 % (3-13); PLATELET COUNT 218 10^3/uL (150-450); RED BLOOD COUNT 4.68 10^6/uL (4.35-5.55); RED CELL DISTRIBUTION WIDTH 13.3 % (11.5-14.0); SEGMENTED NEUTROPHILS % (AUTO) 75.4 % (42-78); TOTAL CELLS COUNTED % (AUTO) 100 %; WHITE BLOOD COUNT 10.3 10^3/uL (4.0-10.5)
[2019-09-17 18:22] LABS: INTERNATIONAL RATION (INR) 1.04; PROTHROMBIN TIME 13.6 SEC (11.4-15.4)
[2019-09-17 18:32] LABS: ALBUMIN 4.2 g/dL (3.5-5.0); ALKALINE PHOSPHATASE 80 U/L (38-126); ANION GAP 10 (5-19); ASPARTATE AMINO TRANSFERASE 27 U/L (17-59); BILIRUBIN,DIRECT 0.1 mg/dL (0.0-0.4); BILIRUBIN,TOTAL 0.9 mg/dL (0.2-1.3); BLOOD UREA NITROGEN 15 mg/dL (7-20); CALCIUM 9.4 mg/dL (8.4-10.2); CARBON DIOXIDE 22 mmol/L (22-30); CHLORIDE 103 mmol/L (98-107); CREATINE KINASE 125 U/L (55-170); GLUCOSE 119 mg/dL (75-110); POTASSIUM 3.9 mmol/L (3.6-5.0); TOTAL PROTEIN 7.3 g/dL (6.3-8.2)
--- NOTE | 2019-09-17 18:39 | RADIOLOGY REPORT (SQ) ---
EXAM DESCRIPTION: CHEST 2 VIEWS COMPLETED DATE/TIME: 09/17/2019 5:45 pm REASON FOR STUDY: chest pain COMPARISON: 09/02/2019 TECHNIQUE: Frontal and lateral radiographic views of the chest acquired. NUMBER OF VIEWS: Two view. LIMITATIONS: None. FINDINGS: LUNGS AND PLEURA: No pneumothorax. No consolidation or pleural effusion. MEDIASTINUM AND HILAR STRUCTURES: Stable. HEART AND VASCULAR STRUCTURES: Stable. BONES: No acute findings. HARDWARE: Cardiac defibrillator. OTHER: No other significant finding. IMPRESSION: NO ACUTE FINDINGS. TECHNICAL DOCUMENTATION: JOB ID: [id number] [employer]- All Rights Reserved Reading location - IP/workstation name: [email or web address]
[2019-09-17 18:47] LABS: CREATINE KINASE MB 1.88 ng/mL (<4.55)
[2019-09-17 19:01] LABS: TROPONIN I < 0.012 ng/mL
[2019-09-17] MEDS ORDERED: NITROGLYCERIN 0.4 MG/TAB 25 TAB/BOTTLE ONE (21:27)
[2019-09-17] MEDS: NITROGLYCERIN 0.4 MG/TAB 25 TAB/BOTTLE SL PRN ×2 (21:38→21:43)
[2019-09-17] MEDS ORDERED: HYDROCODONE/ACETAMINOPHEN 5-325 MG TABLET PO ONE (21:47)
[2019-09-17] MEDS ORDERED: NITROGLYCERIN 2% OINTMENT 1 GM PACKET TP ONE (21:48)
[2019-09-17] MEDS ORDERED: PROMETHAZINE HCL INJ 25 MG/1 ML VIAL IV PRN (22:08)
[2019-09-17] MEDS ORDERED: MAG HYDROX/AL HYDROX/SIMETH SUSP 30 ML UDCUP PO PRN (22:08)
[2019-09-17] MEDS ORDERED: ZOLPIDEM TARTRATE 5 MG TABLET PO PRN (22:08)
[2019-09-17] MEDS ORDERED: MAGNESIUM HYDROXIDE SUSP 30 ML UDCUP PO PRN (22:08)
[2019-09-17] MEDS ORDERED: NICOTINE 21 MG/24 HR PATCH.TD24 TD PRN (22:35)
[2019-09-17] MEDS ORDERED: NALBUPHINE HCL INJ 10 MG/1 ML AMPULE IV PRN ×2 (22:35→23:12)
[2019-09-17] MEDS: FAMOTIDINE 20 MG TABLET PO SCH (22:39)
--- NOTE | 2019-09-18 00:29 | EKG REPORT ---
SEVERITY:- ABNORMAL ECG - SINUS RHYTHM NONSPECIFIC INTRAVENTRICULAR CONDUCTION DELAY : Confirmed by: Odalis Peters MD 18-Sep-2019 00:29:24
--- NOTE | 2019-09-18 00:30 | EKG REPORT ---
SEVERITY:- ABNORMAL ECG - SINUS RHYTHM NONSPECIFIC INTRAVENTRICULAR CONDUCTION DELAY : Confirmed by: Odalis Peters MD 18-Sep-2019 00:29:20
--- NOTE | 2019-09-18 00:30 | EKG REPORT ---
SEVERITY:- ABNORMAL ECG - SINUS RHYTHM PROBABLE LEFT ATRIAL ABNORMALITY LOW VOLTAGE IN FRONTAL LEADS BORDERLINE R WAVE PROGRESSION, ANTERIOR LEADS BORDERLINE T ABNORMALITIES, LATERAL LEADS : Confirmed by: Odalis Peters MD 18-Sep-2019 00:29:29
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
[2019-09-18] MEDS: NALBUPHINE HCL INJ 10 MG/1 ML AMPULE IV PRN ×2 (02:59→08:57)
[2019-09-18 03:29] LABS: CREATINE KINASE MB 1.24 ng/mL (<4.55); TROPONIN I 0.014 ng/mL
[2019-09-18] MEDS: NITROGLYCERIN 2% OINTMENT 1 GM PACKET TP SCH ×2 (05:50)
[2019-09-18] MEDS ORDERED: HEPARIN SOD (PORCINE) 5,000 UNIT/ML 1 ML VIAL SUBCUT SCH (06:00)
[2019-09-18 09:12] LABS: CREATINE KINASE MB 1.64 ng/mL (<4.55)
[2019-09-18 09:17] LABS: TROPONIN I < 0.012 ng/mL
[2019-09-18] MEDS ORDERED: DOCUSATE SODIUM 100 MG CAPSULE PO SCH (10:00)
[2019-09-18] MEDS ORDERED: AMIODARONE HCL 200 MG TABLET ONE (12:36)
[2019-09-18] MEDS ORDERED: APIXABAN 5 MG TABLET PO ONE (12:41)
[2019-09-18] MEDS ORDERED: ISOSORBIDE MONONITRATE 30 MG TAB.ER.24H PO SCH (12:45)
[2019-09-18] MEDS ORDERED: SERTRALINE HCL 50 MG TABLET PO SCH (12:45)
[2019-09-18] MEDS ORDERED: LOSARTAN POTASSIUM 50 MG TABLET PO SCH (12:45)
[2019-09-18] MEDS ORDERED: AMIODARONE HCL 200 MG TABLET PO SCH ×2 (13:00→22:00)
[2019-09-18] MEDS: FAMOTIDINE 20 MG TABLET PO SCH (13:14)
[2019-09-18] MEDS: METOPROLOL SUCCINATE 50 MG TAB.SR.24H PO SCH ×2 (13:14→13:25)
[2019-09-18 16:19] VITALS: BP 120/70
[2019-09-18] MEDS ORDERED: APIXABAN 5 MG TABLET PO SCH (18:00)
[2019-09-18] MEDS ORDERED: LORAZEPAM 0.5 MG TABLET PO SCH (22:00)
[2019-09-19] MEDS ORDERED: ASPIRIN 81 MG TABLET, CHEWABLE PO SCH (10:00)
--- NOTE | 2019-09-22 14:52 | PDOC DISCHARGE SUMMARY ---
Impression - Admit/DC Date/PCP Admission Date/Primary Care Provider: 09/17/19 21:59 MARBELLA LIZAMA PA-C Discharge Date: 09/18/19 - Discharge Diagnosis (1) Chest pain Is this a current diagnosis for this admission?: Yes (2) Coronary artery disease Is this a current diagnosis for this admission?: Yes (3) Dyslipidemia Is this a current diagnosis for this admission?: Yes (4) Heart palpitations Is this a current diagnosis for this admission?: Yes (5) Hypertension Is this a current diagnosis for this admission?: Yes (6) Tobacco use disorder, moderate, dependence Is this a current diagnosis for this admission?: Yes - Additional Information Resuscitation Status: Full Code Discharge Diet: As Tolerated Discharge Activity: Activity As Tolerated, Balance Activity w/Rest Referrals: MARBELLA LIZAMA PA-C [Primary Care Provider] - 09/26/19 9:30 am Home Medications: Apixaban [Eliquis 5 mg Tablet] 5 mg PO Q12 08/26/19 Aspirin [Ecotrin 81 mg EC Tablet] 81 mg PO DAILY 08/26/19 Metoprolol Succinate [Toprol Xl 25 mg Tab.sr] 100 mg PO QHS 08/26/19 Nitroglycerin [Nitrostat 0.4 mg (1/150 Gr) Tabs 25/Bottle] 1 tab SL Q5MP PRN 08/26/19 Pantoprazole Sodium [Protonix [address] Tablet] 20 mg PO DAILY 08/26/19 Amiodarone HCl [Cordarone 200 mg Tablet] 200 mg PO Q12 09/18/19 Atorvastatin Calcium [Lipitor 40 mg Tablet] 40 mg PO QHS 09/18/19 Isosorbide Mononitrate [Imdur 30 mg Tablet.er] 30 mg PO DAILY 09/18/19 Lorazepam 0.5 mg PO Q12HP PRN 09/18/19 Losartan Potassium [Cozaar 25 mg Tablet] 50 mg PO DAILY 09/18/19 Sertraline HCl 50 mg PO DAILYP PRN 09/18/19 History of Present Illiness History of Present Illness: NOE CARTWRIGHT is a 59 year old male NOE CARTWRIGHT is a 59 year old male who presented to the emergency room with acute chest pain. He reports the sudden onset of a constant, moderate to severe, substernal chest pressure, without radiation, several hours prior to his emergency room presentation. His chest pain was accompanied by nausea, lightheadedness, anxiety/jitteriness and diaphoresis. His chest pain was associated with both slow and rapid heart palpitations and mild to moderate transient generalized abdominal pain. His chest pain was relieved by nitroglycerin x1 administered by the paramedics. He admits prior similar episodes related to his coronary artery disease. He has not identified any additional aggravating or ameliorating factors for his chest pain at this time. In the emergency room he was found to have an EKG and cardiac enzymes which showed no evidence of acute coronary ischemia or injury and was ready for discharge to home when he suddenly developed burning hot pinp oint left chest pain, which was relieved by nitroglycerin X3. 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 Hospital Course Hospital Course: Chest pain most likely noncardiac likely due to anxiety. Admitted to [facility], started on antiplatelets, home meds, nitroglycerin as needed, morphine as needed, supplemental oxygen, troponins trended 0.012, 0.014, 0.012. The following day patient remained chest pain-free. Stating that he has an appoint with his video arcade manager at [place] tomorrow. I contacted his video arcade manager office Dr. Romano and updated them about patient hospitalization. As per [facility] Dr. Romano's nurse there was no need for patient to be transferred to [place] and he could follow-up with them tomorrow as previously planned. Patient updated and agreed with plan. Atrial fibrillation. Admitted to telemetry. Rate controlled, anticoagulated. Was restarted on apixaban 5 mg p.o. twice daily amiodarone 200 mg p.o. twice daily and sotalol 120 mg p.o. twice daily. Physical Exam Vital Signs: Temp Pulse Resp BP Pulse Ox 97.4 F 60 16 120/70 96 09/18/19 16:00 09/18/19 16:00 09/18/19 16:00 09/18/19 16:00 09/18/19 16:00 General appearance: PRESENT: obese Head exam: PRESENT: atraumatic, normocephalic Respiratory exam: PRESENT: clear to auscultation etta. ABSENT: rales, rhonchi, wheezes Cardiovascular exam: PRESENT: irregular rhythm. ABSENT: diastolic murmur, rubs, systolic murmur GI/Abdominal exam: PRESENT: normal bowel sounds, soft. ABSENT: distended, guarding, mass, organolmegaly, rebound, tenderness Neurological exam: PRESENT: alert, awake, oriented to person, oriented to place, oriented to time, oriented to situation, CN II-XII grossly intact. ABSENT: motor sensory deficit Results Laboratory Results: WBC 10.3 10^3/uL (4.0-10.5) 09/17/19 17:53 RBC 4.68 10^6/uL (4.35-5.55) 09/17/19 17:53 Hgb 15.5 g/dL (13.5-17.0) 09/17/19 17:53 Hct 44.2 % (37.9-51.0) 09/17/19 17:53 MCV 94 fl (80-97) 09/17/19 17:53 MCH 33.1 pg (27.0-33.4) 09/17/19 17:53 MCHC 35.1 g/dL (32.0-36.0) 09/17/19 17:53 RDW 13.3 % (11.5-14.0) 09/17/19 17:53 Plt Count 218 10^3/uL (150-450) 09/17/19 17:53 Lymph % (Auto) 14.6 % (13-45) 09/17/19 17:53 [place] % (Auto) 7.3 % (3-13) 09/17/19 17:53 Eos % (Auto) 2.0 % (0-6) 09/17/19 17:53 Baso % (Auto) 0.7 % (0-2) 09/17/19 17:53 Absolute Neuts (auto) 7.8 10^3/uL (1.7-8.2) 09/17/19 17:53 Absolute Lymphs (auto) 1.5 10^3/uL (0.5-4.7) 09/17/19 17:53 Absolute Monos (auto) 0.7 10^3/uL (0.1-1.4) 09/17/19 17:53 Absolute Eos (auto) 0.2 10^3/uL (0.0-0.6) 09/17/19 17:53 Absolute Basos (auto) 0.1 10^3/uL (0.0-0.2) 09/17/19 17:53 Seg Neutrophils % 75.4 % (42-78) 09/17/19 17:53 PT 13.6 SEC (11.4-15.4) 09/17/19 18:06 INR 1.04 09/17/19 18:06 Sodium 134.9 mmol/L (137-145) L 09/17/19 17:53 Potassium 3.9 mmol/L (3.6-5.0) 09/17/19 17:53 Chloride 103 mmol/L (98-107) 09/17/19 17:53 Carbon Dioxide 22 mmol/L (22-30) 09/17/19 17:53 Anion Gap 10 (5-19) 09/17/19 17:53 BUN 15 mg/dL (7-20) 09/17/19 17:53 Creatinine 0.82 mg/dL (0.52-1.25) 09/17/19 17:53 Est GFR ( Amer) > 60 (>60) 09/17/19 17:53 Est GFR (MDRD) Non-Af > 60 (>60) 09/17/19 17:53 Glucose 119 mg/dL (75-110) H 09/17/19 17:53 Calcium 9.4 mg/dL (8.4-10.2) 09/17/19 17:53 Magnesium 2.4 mg/dL (1.6-2.3) H 09/18/19 08:18 Total Bilirubin 0.9 mg/dL (0.2-1.3) 09/17/19 17:53 Direct Bilirubin 0.1 mg/dL (0.0-0.4) 09/17/19 17:53 Neonat Total Bilirubin Not Reportable 09/17/19 17:53 Neonat Direct Bilirubin Not Reportable 09/17/19 17:53 Neonat Indirect Bili Not Reportable 09/17/19 17:53 AST 27 U/L (17-59) 09/17/19 17:53 ALT 46 U/L (<50) 09/17/19 17:53 Alkaline Phosphatase 80 U/L (38-126) 09/17/19 17:53 Creatine Kinase 95 U/L (55-170) 09/18/19 08:18 CK-MB (CK-2) 1.64 ng/mL (<4.55) 09/18/19 08:18 Troponin I < 0.012 ng/mL 09/18/19 08:18 Total Protein 7.3 g/dL (6.3-8.2) 09/17/19 17:53 Albumin 4.2 g/dL (3.5-5.0) 09/17/19 17:53 TSH 3.76 uIU/mL (0.47-4.68) 09/18/19 08:18 09/17/19 09/17/19 09/17/19 17:53 20:30 20:30 CK-MB (CK-2) 1.88 1.55 Troponin I < 0.012 0.016 Cancelled 09/18/19 09/18/19 02:33 08:18 CK-MB (CK-2) 1.24 1.64 Troponin I 0.014 < 0.012 Impressions: Chest X-Ray 09/17/19 00:00 IMPRESSION: NO ACUTE FINDINGS. Stroke Is this a Stroke Patient?: No Acute Heart Failure - Is this a Heart Failure Patient?: No
== END 2019-09-18 16:57 | disposition home or self-care (01) ==
LOC: ER 17:15 → EH 21:59 → 3W 09-18 01:20
PROVIDERS: ADMIT Emergency Medicine; ATTEND Emergency Medicine
DX: R07.2 Precordial pain (principal); E78.5 Hyperlipidemia, unspecified; I25.10 Atherosclerotic heart disease of native coronary artery without angina pectoris; R00.2 Palpitations; I10 Essential (primary) hypertension; F41.9 Anxiety disorder, unspecified; F17.200 Nicotine dependence, unspecified, uncomplicated; R11.0 Nausea; R42 Dizziness and giddiness; R61 Generalized hyperhidrosis; R10.84 Generalized abdominal pain; E66.9 Obesity, unspecified; R51 Headache; I48.91 Unspecified atrial fibrillation; I25.2 Old myocardial infarction; Z79.899 Other long term (current) drug therapy; Z79.82 Long term (current) use of aspirin; Z87.898 Personal history of other specified conditions; Z82.49 Family history of ischemic heart disease and other diseases of the circulatory system; Z79.02 Long term (current) use of antithrombotics/antiplatelets; Z95.810 Presence of automatic (implantable) cardiac defibrillator; Z90.49 Acquired absence of other specified parts of digestive tract
CPT/HCPCS: 93005; 99285; 36415 ×2; 82553 ×2; 82550 ×2; 83735; 84443; 85025; 85610; 80053; 84484 ×2; 71046; 93010; G0378 ×3; A9270 ×11; J2300; J3490

== ENCOUNTER 2019-10-21 12:22 | Observation (INO) | payer MEDICARE, MEDICAID ==
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
[2019-10-21 15:58] LABS: HEMATOCRIT 44.1 % (37.9-51.0); HEMOGLOBIN 15.3 g/dL (13.5-17.0); MEAN CORPUSCULAR HEMOGLOBIN 33.2 pg (27.0-33.4); MEAN CORPUSCULAR HGB CONC 34.6 g/dL (32.0-36.0); MEAN CORPUSCULAR VOLUME 96 fl (80-97); PLATELET COUNT 265 10^3/uL (150-450); RED CELL DISTRIBUTION WIDTH 13.2 % (11.5-14.0); WHITE BLOOD COUNT 9.9 10^3/uL (4.0-10.5)
--- NOTE | 2019-10-21 16:01 | RADIOLOGY REPORT (SQ) ---
EXAM DESCRIPTION: CHEST 2 VIEWS COMPLETED DATE/TIME: 10/21/2019 3:47 pm REASON FOR STUDY: cp sob COMPARISON: 09/17/2019 EXAM PARAMETERS: NUMBER OF VIEWS: two views TECHNIQUE: Digital Frontal and Lateral radiographic views of the chest acquired. RADIATION DOSE: NA LIMITATIONS: none FINDINGS: LUNGS AND PLEURA: No opacities, masses or pneumothorax. No pleural effusion. MEDIASTINUM AND HILAR STRUCTURES: No masses or contour abnormalities. HEART AND VASCULAR STRUCTURES: Cardiomegaly with left chest multi lead pacer defibrillator. BONES: Disc degenerative disease of the thoracic spine. HARDWARE: None in the chest. OTHER: No other significant finding. IMPRESSION: Cardiomegaly without acute abnormality of the lungs. No focal airspace opacity. TECHNICAL DOCUMENTATION: JOB ID: [id number]- All Rights Reserved Reading location - IP/workstation name: [email or web address]
[2019-10-21 16:15] LABS: ALKALINE PHOSPHATASE 79 U/L (38-126); ANION GAP 10 (5-19); ASPARTATE AMINO TRANSFERASE 30 U/L (17-59); BILIRUBIN,DIRECT 0.1 mg/dL (0.0-0.4); BILIRUBIN,TOTAL 0.7 mg/dL (0.2-1.3); BLOOD UREA NITROGEN 17 mg/dL (7-20); CALCIUM 9.4 mg/dL (8.4-10.2); CARBON DIOXIDE 26 mmol/L (22-30); CHLORIDE 102 mmol/L (98-107); CREATINE KINASE 90 U/L (55-170); GLUCOSE 104 mg/dL (75-110); POTASSIUM 4.3 mmol/L (3.6-5.0); TOTAL PROTEIN 6.6 g/dL (6.3-8.2)
[2019-10-21 16:27] LABS: ABSOLUTE LYMPHOCYTES# (MANUAL) 3.3 10^3/uL (0.5-4.7); ABSOLUTE MONOCYTES # (MANUAL) 0.6 10^3/uL (0.1-1.4); BASOPHILS % (MANUAL) 0 % (0-2); EOSINOPHILS % (MANUAL) 2 % (0-6); LYMPHOCYTES % (MANUAL) 33 % (13-45); MONOCYTES % (MANUAL) 6 % (3-13); SEGMENTED NEUTROPHILS % (MAN) 59 % (42-78); TOTAL CELLS COUNTED 100
[2019-10-21 16:28] LABS: PLATELET COMMENT ADEQUATE; PLATELET LARGE PRESENT
[2019-10-21 16:29] LABS: POLYCHROMASIA SLIGHT
[2019-10-21 16:30] LABS: PLATELET CLUMPS PRESENT
[2019-10-21 16:31] LABS: ANISOCYTOSIS SLIGHT
[2019-10-21] MEDS ORDERED: ASPIRIN 325 MG TABLET PO ONE (20:15)
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
[2019-10-21] MEDS ORDERED: MAG HYDROX/AL HYDROX/SIMETH SUSP 30 ML UDCUP PO PRN (20:58)
[2019-10-21] MEDS ORDERED: NITROGLYCERIN 0.4 MG/TAB 25 TAB/BOTTLE SL PRN (20:58)
[2019-10-21] MEDS ORDERED: MAGNESIUM HYDROXIDE SUSP 30 ML UDCUP PO PRN (20:58)
[2019-10-21] MEDS ORDERED: MORPHINE SULFATE 10 MG/ML INJ IV PRN ×3 (20:58)
[2019-10-21] MEDS ORDERED: ACETAMINOPHEN 325 MG TABLET PO PRN (20:58)
[2019-10-21] MEDS ORDERED: LEVALBUTEROL HCL NEB 0.63 MG/3 ML AMPUL NEB PRN (20:58)
[2019-10-21] MEDS ORDERED: NICOTINE 21 MG/24 HR PATCH.TD24 TD PRN (20:58)
[2019-10-21] MEDS ORDERED: HYDRALAZINE HCL INJ/PF 20 MG/1 ML SDV IV PRN (20:58)
[2019-10-21] MEDS ORDERED: HYDROMORPHONE HCL INJ/PF 2 MG/ML AMPULE IV PRN ×4 (21:11→21:24)
[2019-10-21] MEDS: ASPIRIN 81 MG TABLET, CHEWABLE PO SCH (21:26)
[2019-10-21 23:01] LABS: CREATINE KINASE MB 1.44 ng/mL (<4.55)
[2019-10-21 23:07] LABS: TROPONIN I 0.034 ng/mL
--- NOTE | 2019-10-22 00:20 | EKG REPORT ---
SEVERITY:- ABNORMAL ECG - SINUS RHYTHM NONSPECIFIC INTRAVENTRICULAR CONDUCTION DELAY BORDERLINE R WAVE PROGRESSION, ANTERIOR LEADS : Confirmed by: Lorrie Aguirre 22-Oct-2019 00:19:46
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
[2019-10-22] MEDS ORDERED: METOPROLOL SUCCINATE 50 MG TAB.SR.24H PO ONE (01:00)
[2019-10-22] MEDS ORDERED: ATORVASTATIN CALCIUM 40 MG TABLET PO ONE ×2 (01:00→01:45)
[2019-10-22] MEDS: HEPARIN SOD (PORCINE) 5,000 UNIT/ML 1 ML VIAL SUBCUT SCH ×2 (01:36→05:40)
[2019-10-22 05:20] LABS: CREATINE KINASE MB 1.38 ng/mL (<4.55); TROPONIN I 0.037 ng/mL
[2019-10-22] MEDS ORDERED: PANTOPRAZOLE SODIUM 40 MG TABLET.DR PO SCH (06:00)
[2019-10-22] MEDS ORDERED: INFLUENZA QUAD (6MOS+) 2019-20 VAC 0.5 ML SYR IM ONE (08:09)
[2019-10-22] MEDS ORDERED: HYDROMORPHONE HCL INJ/PF 2 MG/ML AMPULE IV PRN (08:15)
[2019-10-22] MEDS ORDERED: METOPROLOL SUCCINATE 50 MG TAB.SR.24H PO SCH (10:00)
[2019-10-22] MEDS ORDERED: AMIODARONE HCL 200 MG TABLET PO SCH (10:00)
[2019-10-22] MEDS ORDERED: APIXABAN 5 MG TABLET PO SCH (10:00)
[2019-10-22] MEDS ORDERED: LOSARTAN POTASSIUM 50 MG TABLET PO SCH (10:00)
[2019-10-22] MEDS ORDERED: DOCUSATE SODIUM 100 MG CAPSULE PO SCH (10:00)
[2019-10-22] MEDS ORDERED: ISOSORBIDE MONONITRATE 30 MG TAB.ER.24H PO SCH (10:00)
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
[2019-10-22] MEDS: ASPIRIN 81 MG TABLET, CHEWABLE PO SCH (11:00)
[2019-10-22 11:42] VITALS: BP 134/75
--- NOTE | 2019-10-22 17:33 | PDOC DISCHARGE SUMMARY ---
Impression - Admit/DC Date/PCP Admission Date/Primary Care Provider: 10/21/19 20:29 MARBELLA LIZAMA PA-C Discharge Date: 10/22/19 - Discharge Diagnosis (1) Chest pain Is this a current diagnosis for this admission?: Yes (2) Chronic anticoagulation Is this a current diagnosis for this admission?: Yes (3) Coronary artery disease Is this a current diagnosis for this admission?: Yes (4) Hyperlipidemia Is this a current diagnosis for this admission?: Yes (5) Hypertension Is this a current diagnosis for this admission?: Yes (6) ICD (implantable cardioverter-defibrillator) in place Is this a current diagnosis for this admission?: Yes (7) Tobacco use disorder, moderate, dependence Is this a current diagnosis for this admission?: Yes - Additional Information Resuscitation Status: Full Code Referrals: MARBELLA LIZAMA PA-C [Primary Care Provider] - 10/25/19 1:30 pm Prescriptions: Nicotine [Nicoderm 21 mg/24 Hr Transderm Patch] 1 each TD DAILYP PRN #30 patch.td24 PRN Reason: Home Medications: Amiodarone HCl [Cordarone 200 mg Tablet] 200 mg PO Q12 10/21/19 Apixaban [Eliquis 5 mg Tablet] 5 mg PO Q12 10/21/19 Aspirin [Ecotrin] 81 mg PO QHS 10/21/19 Atorvastatin Calcium [Lipitor 40 mg Tablet] 40 mg PO DAILY 10/21/19 Isosorbide Mononitrate [Imdur 30 mg Tablet.er] 30 mg PO DAILY 10/21/19 Losartan Potassium [Cozaar 50 mg Tablet] 50 mg PO DAILY 10/21/19 Metoprolol Succinate [Toprol Xl 50 mg Tab.sr] 75 mg PO Q12 10/21/19 Pantoprazole Sodium [Protonix [address] Tablet] 40 mg PO Q6AM 10/21/19 Acetaminophen [Tylenol 325 mg Tablet] 650 mg PO Q4HP PRN tablet 10/22/19 Docusate Sodium [Colace 100 mg Capsule] 100 mg PO BID capsule 10/22/19 Nicotine [Nicoderm 21 mg/24 Hr Transderm Patch] 1 each TD DAILYP PRN #30 patch.td24 10/22/19 History of Present Illiness History of Present Illness: Per H&P by Dr. Panda: NOE CARTWRIGHT is a 59 year old male who presents the emergency room with acute chest pain. Patient admits the sudden onset of constant, moderately intense substernal chest pressure without radiation at 4 AM on the morning of admission. The pain was persistent throughout the day and caused him to come to the emergency room. The pain was accompanied by moderate dyspnea, lightheadedness and nausea worsened by exertion. The pain was associated with orthopnea. He denies additional associated or accompanying signs and symptoms. He admits prior similar symptoms with his coronary artery disease in the past. He has not identified any additional aggravating or ameliorating factors for his chest pain. In the emergency room he was found to have initial cardiac enzymes and initial EKG showing no evidence of acute myocardial ischemia or injury. Patient was subsequently admitted to observation status for further evaluation and treatment. Hospital Course Hospital Course: The patient was admitted to the medical floor and monitored on continuous cardiac telemetry; he had no abnormal telemetry readings and remained in sinus rhythm throughout his admission. Patient's troponins were trended x4; remained stable at 0.037. He had no further episodes of chest discomfort. On further discussion, his chest discomfort was likely pleuritic in nature as he had some associated mild dyspnea and pain worsened with cough and deep inspiration. Cardiology services were consulted. Dr. Croft recommends continuing the patient's current medication regiment of amiodarone, Eliquis. No further risk stratification recommended at this time. Recommend close follow-up with his established time study technologist at [facility]. The patient is discharged home in stable condition, asymptomatic, and ambulatory on room air without discomfort. He is advised to follow-up with his primary care provider within 1 week. He is instructed to contact established time study technologist, notify them of his admission, and follow-up as instructed. He is advised to continue his home medication regimen unchanged. He is encouraged to eat a heart healthy diet. Do not smoke. Return to the emergency department as needed for concerning symptoms. Physical Exam Vital Signs: Temp Pulse Resp BP Pulse Ox 98.2 F 62 18 117/70 99 10/22/19 07:31 10/22/19 07:31 10/22/19 07:31 10/22/19 07:31 10/22/19 07:31 Intake & Output 10/21/19 10/22/19 10/23/19 06:59 06:59 06:59 Intake Total 230 Output Total 230 Balance 0 Weight 104.7 kg General appearance: PRESENT: no acute distress, well-developed, well-nourished Head exam: PRESENT: atraumatic, normocephalic Eye exam: PRESENT: conjunctiva pink, EOMI, PERRLA. ABSENT: scleral icterus Ear exam: PRESENT: normal external ear exam Mouth exam: PRESENT: moist, tongue midline Neck exam: ABSENT: carotid bruit, JVD, lymphadenopathy, thyromegaly Respiratory exam: PRESENT: clear to auscultation etta. ABSENT: rales, rhonchi, wheezes Cardiovascular exam: PRESENT: RRR. ABSENT: diastolic murmur, rubs, systolic murmur Pulses: PRESENT: normal dorsalis pedis pul Vascular exam: PRESENT: normal capillary refill GI/Abdominal exam: PRESENT: normal bowel sounds, soft. ABSENT: distended, guarding, mass, organolmegaly, rebound, tenderness Rectal exam: PRESENT: deferred Extremities exam: PRESENT: full ROM. ABSENT: calf tenderness, clubbing, pedal edema Neurological exam: PRESENT: alert, awake, oriented to person, oriented to place, oriented to time, oriented to situation, CN II-XII grossly intact. ABSENT: motor sensory deficit Psychiatric exam: PRESENT: appropriate affect, normal mood. ABSENT: homicidal ideation, suicidal ideation Skin exam: PRESENT: dry, intact, warm. ABSENT: cyanosis, rash Results Laboratory Results: WBC 9.9 10^3/uL (4.0-10.5) 10/21/19 15:26 RBC 4.60 10^6/uL (4.35-5.55) 10/21/19 15:26 Hgb 15.3 g/dL (13.5-17.0) 10/21/19 15:26 Hct 44.1 % (37.9-51.0) 10/21/19 15:26 MCV 96 fl (80-97) 10/21/19 15:26 MCH 33.2 pg (27.0-33.4) 10/21/19 15:26 MCHC 34.6 g/dL (32.0-36.0) 10/21/19 15:26 RDW 13.2 % (11.5-14.0) 10/21/19 15:26 Plt Count 265 10^3/uL (150-450) 10/21/19 15:26 Lymph % (Auto) Not Reportable 10/21/19 15:26 [place] % (Auto) Not Reportable 10/21/19 15:26 Eos % (Auto) Not Reportable 10/21/19 15:26 Baso % (Auto) Not Reportable 10/21/19 15:26 Absolute Neuts (auto) Not Reportable 10/21/19 15:26 Absolute Lymphs (auto) Not Reportable 10/21/19 15:26 Absolute Monos (auto) Not Reportable 10/21/19 15:26 Absolute Eos (auto) Not Reportable 10/21/19 15:26 Absolute Basos (auto) Not Reportable 10/21/19 15:26 Total Counted 100 10/21/19 15:26 Seg Neutrophils % Not Reportable 10/21/19 15:26 Seg Neuts % (Manual) 59 % (42-78) 10/21/19 15:26 Lymphocytes % (Manual) 33 % (13-45) 10/21/19 15:26 Monocytes % (Manual) 6 % (3-13) 10/21/19 15:26 Eosinophils % (Manual) 2 % (0-6) 10/21/19 15:26 Basophils % (Manual) 0 % (0-2) 10/21/19 15:26 Abs Neuts (Manual) 5.8 10^3/uL (1.7-8.2) 10/21/19 15:26 Abs Lymphs (Manual) 3.3 10^3/uL (0.5-4.7) 10/21/19 15:26 Abs Monocytes (Manual) 0.6 10^3/uL (0.1-1.4) 10/21/19 15:26 Absolute Eos (Manual) 0.2 10^3/uL (0.0-0.6) 10/21/19 15:26 Abs Basophils (Manual) 0.0 10^3/uL (0.0-0.2) 10/21/19 15:26 Clumped Platelets PRESENT 10/21/19 15:26 Large Platelets PRESENT 10/21/19 15:26 Platelet Comment ADEQUATE 10/21/19 15:26 Polychromasia SLIGHT 10/21/19 15:26 Anisocytosis SLIGHT 10/21/19 15:26 Sodium 137.8 mmol/L (137-145) 10/21/19 15:26 Potassium 4.3 mmol/L (3.6-5.0) 10/21/19 15:26 Chloride 102 mmol/L (98-107) 10/21/19 15:26 Carbon Dioxide 26 mmol/L (22-30) 10/21/19 15:26 Anion Gap 10 (5-19) 10/21/19 15:26 BUN 17 mg/dL (7-20) 10/21/19 15:26 Creatinine 0.91 mg/dL (0.52-1.25) 10/21/19 15:26 Est GFR ( Amer) > 60 (>60) 10/21/19 15:26 Est GFR (MDRD) Non-Af > 60 (>60) 10/21/19 15:26 Glucose 104 mg/dL (75-110) 10/21/19 15:26 Calcium 9.4 mg/dL (8.4-10.2) 10/21/19 15:26 Total Bilirubin 0.7 mg/dL (0.2-1.3) 10/21/19 15:26 Direct Bilirubin 0.1 mg/dL (0.0-0.4) 10/21/19 15:26 Neonat Total Bilirubin Not Reportable 10/21/19 15:26 Neonat Direct Bilirubin Not Reportable 10/21/19 15:26 Neonat Indirect Bili Not Reportable 10/21/19 15:26 AST 30 U/L (17-59) 10/21/19 15:26 ALT 49 U/L (<50) 10/21/19 15:26 Alkaline Phosphatase 79 U/L (38-126) 10/21/19 15:26 Creatine Kinase 76 U/L (55-170) 10/22/19 04:00 CK-MB (CK-2) 1.38 ng/mL (<4.55) 10/22/19 04:00 Troponin I 0.037 ng/mL 10/22/19 04:00 Total Protein 6.6 g/dL (6.3-8.2) 10/21/19 15:26 Albumin 4.0 g/dL (3.5-5.0) 10/21/19 15:26 10/21/19 10/21/19 10/21/19 15:26 18:16 21:42 CK-MB (CK-2) 1.44 Troponin I 0.033 0.033 0.034 10/22/19 04:00 CK-MB (CK-2) 1.38 Troponin I 0.037 Impressions: Chest X-Ray 10/21/19 15:06 IMPRESSION: Cardiomegaly without acute abnormality of the lungs. No focal airspace opacity. Plan Plan of Treatment: Patient is discharged to home with self care. He is instructed to follow up with his primary care provider within 1 week. He is instructed to contact his establish time study technologist; notify them of admission for chest pain rule out, and to follow up as directed. He is advised to eat a cardiac diet. Do NOT smoke. Continue home medication regiment unchanged. Return to the emergency department as needed for concerning symptoms. Time Spent: Greater than 30 Minutes Stroke Is this a Stroke Patient?: No Acute Heart Failure - Is this a Heart Failure Patient?: No
[2019-10-22] MEDS ORDERED: ASPIRIN 81 MG TABLET, ENT COATED PO SCH (22:00)
[2019-10-22] MEDS ORDERED: ATORVASTATIN CALCIUM 40 MG TABLET PO SCH (22:00)
== END 2019-10-22 11:46 | disposition home or self-care (01) ==
LOC: ER 12:22 → EH 20:29 → 5 22:50
PROVIDERS: ADMIT Emergency Medicine; ATTEND Emergency Medicine
DX: R07.2 Precordial pain (principal); E78.5 Hyperlipidemia, unspecified; I25.119 Atherosclerotic heart disease of native coronary artery with unspecified angina pectoris; I10 Essential (primary) hypertension; F17.200 Nicotine dependence, unspecified, uncomplicated; R06.00 Dyspnea, unspecified; R42 Dizziness and giddiness; R11.0 Nausea; R05 Cough; I48.20 Chronic atrial fibrillation, unspecified; I25.2 Old myocardial infarction; E66.9 Obesity, unspecified; M19.90 Unspecified osteoarthritis, unspecified site; I44.0 Atrioventricular block, first degree; Z95.5 Presence of coronary angioplasty implant and graft; K62.5 Hemorrhage of anus and rectum; R06.01 Orthopnea; Z82.49 Family history of ischemic heart disease and other diseases of the circulatory system; I25.10 Atherosclerotic heart disease of native coronary artery without angina pectoris; Z95.810 Presence of automatic (implantable) cardiac defibrillator; Z79.01 Long term (current) use of anticoagulants; Z79.82 Long term (current) use of aspirin; Z90.49 Acquired absence of other specified parts of digestive tract; Z98.890 Other specified postprocedural states; Z79.899 Other long term (current) drug therapy
CPT/HCPCS: 93005; 99285; 36415 ×2; 82553 ×2; 82550 ×2; 85025; 80053; 84484 ×2; 71046; 93010; G0378 ×3; A9270 ×10; J1644; J1170; J3490

== ENCOUNTER 2019-11-18 14:55 | Emergency (ER) | payer MEDICARE, MEDICAID ==
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
[2019-11-18 16:19] LABS: INTERNATIONAL RATION (INR) 0.94; PROTHROMBIN TIME 12.6 SEC (11.4-15.4)
[2019-11-18 16:21] LABS: ABSOLUTE BASOPHILS # (AUTO) 0.1 10^3/uL (0.0-0.2); ABSOLUTE EOSINOPHILS # (AUTO) 0.1 10^3/uL (0.0-0.6); ABSOLUTE LYMPHOCYTES (AUTO) 1.6 10^3/uL (0.5-4.7); ABSOLUTE MONOCYTES (AUTO) 0.7 10^3/uL (0.1-1.4); ABSOLUTE NEUT (AUTO) 5.6 10^3/uL (1.7-8.2); BASOPHILS % (AUTO) 0.9 % (0-2); EOSINOPHILS % (AUTO) 1.6 % (0-6); HEMATOCRIT 47.3 % (37.9-51.0); HEMOGLOBIN 16.4 g/dL (13.5-17.0); LYMPHOCYTES % (AUTO) 19.8 % (13-45); MEAN CORPUSCULAR HEMOGLOBIN 33.3 pg (27.0-33.4); MEAN CORPUSCULAR HGB CONC 34.7 g/dL (32.0-36.0); MEAN CORPUSCULAR VOLUME 96 fl (80-97); PLATELET COUNT 227 10^3/uL (150-450); RED BLOOD COUNT 4.94 10^6/uL (4.35-5.55); RED CELL DISTRIBUTION WIDTH 12.9 % (11.5-14.0); SEGMENTED NEUTROPHILS % (AUTO) 68.7 % (42-78); TOTAL CELLS COUNTED % (AUTO) 100 %; WHITE BLOOD COUNT 8.1 10^3/uL (4.0-10.5)
[2019-11-18 16:33] LABS: AMORPHOUS SEDIMENT,URINE TRACE /HPF; APPEARANCE,URINE SLIGHTLY-CLOUDY; BILIRUBIN,URINE NEGATIVE (NEGATIVE); COLOR,URINE YELLOW; GLUCOSE, URINE NEGATIVE (NEGATIVE); KETONES,URINE NEGATIVE (NEGATIVE); LEUKOCYTE ESTERASE,URINE NEGATIVE (NEGATIVE); NITRITE,URINE NEGATIVE (NEGATIVE); PROTEIN,URINE NEGATIVE (NEGATIVE); URINE SPECIFIC GRAVITY 1.018
[2019-11-18 16:42] LABS: ALBUMIN 4.4 g/dL (3.5-5.0); ALKALINE PHOSPHATASE 80 U/L (38-126); ANION GAP 9 (5-19); ASPARTATE AMINO TRANSFERASE 33 U/L (17-59); BILIRUBIN,DIRECT 0.1 mg/dL (0.0-0.4); BILIRUBIN,TOTAL 0.8 mg/dL (0.2-1.3); BLOOD UREA NITROGEN 17 mg/dL (7-20); CALCIUM 9.6 mg/dL (8.4-10.2); CARBON DIOXIDE 25 mmol/L (22-30); CHLORIDE 103 mmol/L (98-107); CREATINE KINASE 104 U/L (55-170); GLUCOSE 102 mg/dL (75-110); POTASSIUM 4.6 mmol/L (3.6-5.0); TOTAL PROTEIN 7.4 g/dL (6.3-8.2)
[2019-11-18 16:51] LABS: CREATINE KINASE MB 1.73 ng/mL (<4.55); TROPONIN I 0.014 ng/mL
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
--- NOTE | 2019-11-18 17:17 | EKG REPORT ---
SEVERITY:- ABNORMAL ECG - SINUS RHYTHM NONSPECIFIC INTRAVENTRICULAR CONDUCTION DELAY : Confirmed by: Odalis Peters MD 18-Nov-2019 17:15:24
--- NOTE | 2019-11-18 17:18 | RADIOLOGY REPORT (SQ) ---
EXAM DESCRIPTION: CT HEAD WITHOUT COMPLETED DATE/TIME: 11/18/2019 4:59 pm REASON FOR STUDY: right side face/arm numbness COMPARISON: None. TECHNIQUE: Axial images acquired through the brain without intravenous contrast. Images reviewed wi th bone, brain and subdural windows. Additional sagittal and coronal reconstructions were generated. Images stored on PACS. All CT scanners at this facility use dose modulation, iterative reconstruction, and/or weight based d osing when appropriate to reduce radiation dose to as low as reasonably achievable (ALARA). [facility]: Dose Right [facility]: CareDose [facility]: Dose Right [facility]: Teradose 4D [facility]: Smart Outlisten RADIATION DOSE: CT Rad equipment meets quality standard of care and radiation dose reduction techniq ues were employed. CTDIvol: 53.2 mGy. DLP: 1124 mGy-cm. mGy. LIMITATIONS: None. FINDINGS: VENTRICLES: Normal size and contour. CEREBRUM: No masses. No hemorrhage. No midline shift. No evidence for acute infarction. Normal gra y/white matter differentiation. No areas of low density in the white matter. CEREBELLUM: No masses. No hemorrhage. No alteration of density. No evidence for acute infarction. EXTRAAXIAL SPACES: No fluid collections. No masses. ORBITS AND GLOBE: No intra- or extraconal masses. Normal contour of globe without masses. CALVARIUM: No fracture. PARANASAL SINUSES: No fluid or mucosal thickening. SOFT TISSUES: No mass or hematoma. OTHER: No other significant finding. IMPRESSION: NORMAL BRAIN CT WITHOUT CONTRAST. EVIDENCE OF ACUTE STROKE: NO. COMMENT: Quality ID # [id number]: Final reports with documentation of one or more dose reduction techniques (e.g., Automated exposure control, adjustment of the mA and/or kV according to patient size, use of iterative reconstruction technique) TECHNICAL DOCUMENTATION: JOB ID: [id number] [employer]- All Rights Reserved Reading location - IP/workstation name: [email or web address]
--- NOTE | 2019-11-18 17:20 | RADIOLOGY REPORT (SQ) ---
EXAM DESCRIPTION: CHEST 2 VIEWS COMPLETED DATE/TIME: 11/18/2019 5:08 pm REASON FOR STUDY: CP COMPARISON: 10/21/2019 EXAM PARAMETERS: NUMBER OF VIEWS: two views TECHNIQUE: Digital Frontal and Lateral radiographic views of the chest acquired. RADIATION DOSE: NA LIMITATIONS: none FINDINGS: LUNGS AND PLEURA: No opacities, masses or pneumothorax. No pleural effusion. MEDIASTINUM AND HILAR STRUCTURES: No masses or contour abnormalities. HEART AND VASCULAR STRUCTURES: Heart normal size. No evidence for failure. BONES: Old healed right-sided rib fractures are again noted. HARDWARE: Battery pack and leads remain in place. OTHER: No other significant finding. IMPRESSION: NO ACUTE RADIOGRAPHIC FINDING IN THE CHEST. TECHNICAL DOCUMENTATION: JOB ID: [id number] [employer]- All Rights Reserved Reading location - IP/workstation name: [email or web address]
[2019-11-18] MEDS ORDERED: ASPIRIN 81 MG TABLET, CHEWABLE PO ONE (17:27)
[2019-11-18] MEDS ORDERED: ONDANSETRON 4 MG TAB.RAPDIS PO ONE (17:28)
[2019-11-18] MEDS: NITROGLYCERIN 0.4 MG/TAB 25 TAB/BOTTLE SL PRN ×2 (17:37→17:44)
[2019-11-18 20:57] VITALS: BP 150/81
== END 2019-11-18 20:50 | disposition home or self-care (01) ==
LOC: ER 14:55
DX: R07.9 Chest pain, unspecified (principal); R20.0 Anesthesia of skin; R53.1 Weakness; I10 Essential (primary) hypertension; F17.200 Nicotine dependence, unspecified, uncomplicated; I25.2 Old myocardial infarction; I25.10 Atherosclerotic heart disease of native coronary artery without angina pectoris; I48.91 Unspecified atrial fibrillation; Z79.01 Long term (current) use of anticoagulants; Z95.810 Presence of automatic (implantable) cardiac defibrillator
CPT/HCPCS: 93005; 99285; 36415; 82553; 82550; 83735; 85025; 85610; 85730; 80053; 81001; 84484; 83880; 71046; 70450; 93010; A9270 ×3; S0119

== ENCOUNTER 2020-03-06 21:49 | Emergency (ER) | payer MEDICARE ==
[2020-03-06] MEDS ORDERED: ONDANSETRON HCL INJ/PF 4 MG/2 ML SDV IV ONE (22:03)
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
[2020-03-06 22:12] LABS: ABSOLUTE BASOPHILS # (AUTO) 0.1 10^3/uL (0.0-0.2); ABSOLUTE EOSINOPHILS # (AUTO) 0.2 10^3/uL (0.0-0.6); ABSOLUTE LYMPHOCYTES (AUTO) 2.3 10^3/uL (0.5-4.7); ABSOLUTE MONOCYTES (AUTO) 0.8 10^3/uL (0.1-1.4); ABSOLUTE NEUT (AUTO) 5.6 10^3/uL (1.7-8.2); EOSINOPHILS % (AUTO) 2.5 % (0-6); HEMATOCRIT 45.8 % (37.9-51.0); HEMOGLOBIN 16.4 g/dL (13.5-17.0); LYMPHOCYTES % (AUTO) 25.6 % (13-45); MEAN CORPUSCULAR HEMOGLOBIN 33.7 pg (27.0-33.4); MEAN CORPUSCULAR HGB CONC 35.9 g/dL (32.0-36.0); MEAN CORPUSCULAR VOLUME 94 fl (80-97); MONOCYTES % (AUTO) 8.9 % (3-13); PLATELET COUNT 230 10^3/uL (150-450); RED BLOOD COUNT 4.88 10^6/uL (4.35-5.55); RED CELL DISTRIBUTION WIDTH 12.8 % (11.5-14.0); TOTAL CELLS COUNTED % (AUTO) 100 %
[2020-03-06 22:29] LABS: ALBUMIN 4.4 g/dL (3.5-5.0); ALKALINE PHOSPHATASE 79 U/L (38-126); ANION GAP 9 (5-19); ASPARTATE AMINO TRANSFERASE 37 U/L (17-59); BILIRUBIN,TOTAL 0.9 mg/dL (0.2-1.3); BLOOD UREA NITROGEN 17 mg/dL (7-20); CALCIUM 9.4 mg/dL (8.4-10.2); CARBON DIOXIDE 24 mmol/L (22-30); CHLORIDE 101 mmol/L (98-107); CREATINE KINASE 214 U/L (55-170); GLUCOSE 115 mg/dL (75-110); POTASSIUM 4.1 mmol/L (3.6-5.0); TOTAL PROTEIN 7.2 g/dL (6.3-8.2)
[2020-03-06 22:41] LABS: CREATINE KINASE MB 2.72 ng/mL (<4.55)
[2020-03-06 22:44] LABS: TROPONIN I < 0.012 ng/mL
--- NOTE | 2020-03-06 23:42 | RADIOLOGY REPORT (SQ) ---
EXAM DESCRIPTION: XR CHEST 1 VIEW COMPLETED DATE/TME: 03/06/2020 23:00 CLINICAL HISTORY: chest pain COMPARISON: None FINDINGS: Cardiac silhouette is within normal limits. Pacer leads project over the heart. EKG leads project over the chest. Linear opacities within the left mid lung may represent scar versus subsegmental atelectasis. There is no acute osseous process visualized. IMPRESSION: Linear opacities within the left mid lung may represent scar versus subsegmental atelectasis.
[2020-03-07] MEDS ORDERED: FAMOTIDINE 20 MG TABLET PO ONE (02:49)
[2020-03-07] MEDS ORDERED: SUCRALFATE 1 GM TABLET PO ONE (02:49)
[2020-03-07 03:14] VITALS: BP 125/76
--- NOTE | 2020-03-07 09:23 | EKG REPORT ---
SEVERITY:- ABNORMAL ECG - SINUS RHYTHM BORDERLINE INFERIOR Q WAVES ANTERIOR INFARCT, OLD : Confirmed by: Odalis Peters MD 07-Mar-2020 09:22:52
== END 2020-03-07 03:26 | disposition home or self-care (01) ==
LOC: ER 21:49
DX: R07.9 Chest pain, unspecified (principal); R10.10 Upper abdominal pain, unspecified; R10.811 Right upper quadrant abdominal tenderness; R10.812 Left upper quadrant abdominal tenderness; R10.813 Right lower quadrant abdominal tenderness; R11.0 Nausea; I25.10 Atherosclerotic heart disease of native coronary artery without angina pectoris; I10 Essential (primary) hypertension; I25.2 Old myocardial infarction; F17.200 Nicotine dependence, unspecified, uncomplicated; I48.91 Unspecified atrial fibrillation; Z79.01 Long term (current) use of anticoagulants; Z95.5 Presence of coronary angioplasty implant and graft; Z95.810 Presence of automatic (implantable) cardiac defibrillator; Z88.6 Allergy status to analgesic agent; Z88.5 Allergy status to narcotic agent
CPT/HCPCS: 93005; 99285; 96374; 36415; 82553; 82550; 83690; 85025; 80053; 84484; 71045; 93010; A9270 ×2; J2405

== ENCOUNTER → 2020-03-16 | Outpatient (CLI) | payer MEDICAID, MEDICARE ==
--- NOTE | 2020-03-16 12:55 | RADIOLOGY REPORT (SQ) ---
EXAM DESCRIPTION: UGI W/ DOUBLE CONTRAST IMAGES COMPLETED DATE/TIME: 03/16/2020 12:34 pm REASON FOR STUDY: (R14.0)ABDOMINAL DISTENTION R14.0 ABDOMINAL DISTENSION (GASEOUS) COMPARISON: None. TECHNIQUE: Under fluoroscopic guidance, patient ingested effervescent granules followed by thick and thin barium. Fluoroscopic spot images and routine radiographic images acquired and stored on PACS. 12 MM BARIUM TABLET GIVEN: Yes. No significant delay in passage. LIMITATIONS: None. FLUOROSCOPY TIME: FLUORO TIME: 2.2 minutes of fluoroscopy was used. 16 images saved to PACS. FINDINGS: NEUROMUSCULAR COORDINATION OF SWALLOW: Normal. No aspiration. ESOPHAGEAL MOTILITY: Normal peristalsis. No esophageal spasm. ESOPHAGEAL MUCOSA: Normal mucosa without masses or ulceration. GASTRO-ESOPHAGEAL JUNCTION: No hiatal hernia. Mild gastroesophageal reflux. 12 mm barium tablet pas sed through the GE junction without delay. STOMACH: Normal without masses or ulcerations. GASTRIC OUTLET: No delay in emptying. Normal pylorus. DUODENAL BULB: Normal distention. No spasm or ulceration. DUODENUM: Mucosa normal. No extrinsic masses or malrotation. PROXIMAL SMALL BOWEL: Mucosa normal. No extrinsic masses or malrotation. NON-GI TRACT STRUCTURES: No significant finding. OTHER: No other significant finding. IMPRESSION: MILD GASTROESOPHAGEAL REFLUX OTHERWISE NORMAL DOUBLE CONTRAST UPPER GI SERIES. COMMENT: Quality ID 145: Final reports for procedures using fluoroscopy that document radiation exp osure indices, or exposure time and number of fluorographic images (if radiation exposure indices are not available) TECHNICAL DOCUMENTATION: JOB ID: [id number] 2010 [employer]- All Rights Reserved Reading location - IP/workstation name: [email or web address] [id number]
--- NOTE | 2020-03-16 12:59 | RADIOLOGY REPORT (SQ) ---
EXAM DESCRIPTION: SMALL BOWEL SERIES IMAGES COMPLETED DATE/TIME: 03/16/2020 12:19 pm REASON FOR STUDY: (R14.0)ABDOMINAL DISTENTION R14.0 ABDOMINAL DISTENSION (GASEOUS) COMPARISON: None. FLUOROSCOPY TIME: 0.4 minutes of fluoroscopy was used. 4 images saved to PACS. LIMITATIONS: None. PROCEDURE: Initial project structural engineer image of abdomen acquired, followed by administration of oral contrast. Se rial radiographic images acquired. Fluoroscopic images recorded of the terminal ileum and other kathi cated areas. All images stored on PACS. FINDINGS: SOFTWARE APPLICATIONS ENGINEER KUB: Non-obstructive bowel pattern. No abnormal calcifications. Moderate fecal mat erial from the right colon. Surgical clips are seen in the right upper quadrant Soft tissue planes n ormal. STOMACH: Normal distention without abnormality. DUODENUM: Normal mucosal pattern with adequate distention. No displacement or obstruction. JEJUNUM: Normal mucosal pattern. No dilatation, segmentation, strictures or masses. ILEUM: Normal mucosal pattern. No dilatation, segmentation, strictures or masses. TERMINAL ILEUM AND ILEO-CECAL VALVE: Normal mucosal pattern without "cobble-stoning" or stricture. N ormal compression. PROXIMAL COLON: Incompletely imaged. No abnormality. OTHER: Transit time for contrast reached colon was 3 hours. IMPRESSION: NORMAL SMALL BOWEL EXAM. COMMENT: Quality ID 145: Final reports for procedures using fluoroscopy that document radiation exp osure indices, or exposure time and number of fluorographic images (if radiation exposure indices are not available) TECHNICAL DOCUMENTATION: JOB ID: [id number] 2010 [employer]- All Rights Reserved Reading location - IP/workstation name: [email or web address] [id number]
== END ==
LOC: RAD 08:12
PROVIDERS: ATTEND Internal Medicine Pulmonary Disease
DX: R14.0 Abdominal distension (gaseous) (principal); K21.9 Gastro-esophageal reflux disease without esophagitis
CPT/HCPCS: 74240; 74246; 74250

== ENCOUNTER → 2020-05-12 | Outpatient (CLI) | payer MEDICAID, MEDICARE ==
--- NOTE | 2020-05-12 11:38 | RADIOLOGY REPORT (SQ) ---
EXAM DESCRIPTION: CT CHEST WITHOUT IMAGES COMPLETED DATE/TIME: 05/12/2020 7:17 am REASON FOR STUDY: OTHER NONSPECIFIC ABNORMAL FINDING OF LUNG FIELD (R91.8) SUBLEURAL PUL NODU R91.8 OTHER NONSPECIFIC ABNORMAL FINDING OF LUNG FIELD COMPARISON: CT chest 02/11/2020 TECHNIQUE: CT scan performed of the chest without intravenous contrast. Images reviewed with lung, soft tissue and bone windows. Reconstructed coronal and sagittal MPR images reviewed. All images st ored on PACS. All CT scanners at this facility use dose modulation, iterative reconstruction, and/or weight based d osing when appropriate to reduce radiation dose to as low as reasonably achievable (ALARA). [facility]: Dose Right [facility]: CareDose [facility]: Dose Right [facility]: Teradose 4D [facility]: Smart Hyphen 8 RADIATION DOSE: CT Rad equipment meets quality standard of care and radiation dose reduction techniq ues were employed. CTDIvol: 17.1 mGy. DLP: 726 mGy-cm. mGy. LIMITATIONS: No technical limitations. FINDINGS: LUNGS AND PLEURA: On axial image 49, a smooth round subpleural noncalcified 6 mm nodule is present, unchanged from 02/11/2020. This is a probably benign finding. Less than 4 mm noncalcified granuloma right upper lobe axial image 35. 4 mm noncalcified granuloma p osterior right upper lobe image 33. Bandlike scarring in the lingula and right middle lobe. No fluffy alveolar infiltrates worrisome for pulmonary edema or pneumonia. No pleural effusion. No pneumothorax. HILAR AND MEDIASTINAL STRUCTURES: No identified masses or abnormal nodes. No obvious aneurysm. HEART AND VASCULAR STRUCTURES: No aneurysm. No pericardial effusion. Calcified coronary arteries wi th coronary stents. Left-sided dual lead pacemaker. UPPER ABDOMEN: Fatty liver. Post cholecystectomy. Unchanged calcifications posterior right lobe eliecer er bare area. THYROID AND OTHER SOFT TISSUES: No masses. No adenopathy. BONES: No significant finding. HARDWARE: Unchanged left-sided pacemaker OTHER: No other significant findings. IMPRESSION: Probably benign subpleural smooth round noncalcified granulomas in the right upper lobe Consider 1 year follow-up chest CT COMMENT: FLEISCHNER CRITERIA FOR FOLLOW-UP OF PULMONARY NODULES Incidentally detected new nodules in persons 35 or older. HIGH RISK: History of smoking or other known risk factors. <6 mm single solid nodule: LOW RISK: no routine followup. HIGH RISK: optional CT 12 mo. TECHNICAL DOCUMENTATION: JOB ID: [id number] Quality ID # [id number]: Final reports with documentation of one or more dose reduction techniques (e.g., Au tomated exposure control, adjustment of the mA and/or kV according to patient size, use of iterative reconstruction technique) 2010 [employer]- All Rights Reserved Reading location - IP/workstation name: [email or web address]
== END ==
LOC: RAD 06:54
PROVIDERS: ATTEND Internal Medicine Pulmonary Disease
DX: R91.8 Other nonspecific abnormal finding of lung field (principal)
CPT/HCPCS: 71250

== ENCOUNTER 2020-05-15 06:34 | Day surgery (SDC) | payer MEDICARE ==
[2020-05-15] MEDS ORDERED: PROPOFOL INJ 200 MG/20 ML VIAL IV ONE (07:54)
--- NOTE | 2020-05-15 08:37 | Operative Report ---
Operative Report DATE OF SURGERY: 05/15/20 Operative Report: The risks benefits and alternatives of the procedure explained to the patient in detail and informed consent is obtained.A GIF Olympus video scope was inserted into the patient's mouth and hypopharynx, the esophagus is identified intubated and insufflated, the scope was then advanced through the esophagus stomach and duodenum, retroflexion maneuver is done ,the esophagus stomach and first and second portions of the duodenum examined PREOPERATIVE DIAGNOSIS: Epigastric pain rule out peptic ulcer disease POSTOPERATIVE DIAGNOSIS: Gastritis status post biopsy rule out H. pylori OPERATION: EGD with biopsy SURGEON: MITZY MIDDLETON ANESTHESIA: LMAC TISSUE REMOVED OR ALTERED: As noted above. COMPLICATIONS: None. ESTIMATED BLOOD LOSS: None. INTRAOPERATIVE FINDINGS: As noted above. PROCEDURE: Patient tolerated the procedure well. No immediate postprocedure complications are noted. Patient is discharged in good condition. Discharge date 05/15/2020. Discharge diet: Regular. Discharge activity: Regular. 2 to 3-week follow-up to discuss findings. Patient is instructed call the office or proceed to the emergency room should there be any further problems or questions. Wait on the pathology.
[2020-05-15 09:10] VITALS: BP 92/37
== END 2020-05-15 09:15 | disposition home or self-care (01) ==
LOC: END 06:34
PROVIDERS: ATTEND Internal Medicine Gastroenterology
DX: K31.7 Polyp of stomach and duodenum (principal); K29.50 Unspecified chronic gastritis without bleeding; J44.9 Chronic obstructive pulmonary disease, unspecified; I25.10 Atherosclerotic heart disease of native coronary artery without angina pectoris; G47.33 Obstructive sleep apnea (adult) (pediatric); R06.02 Shortness of breath; Z87.891 Personal history of nicotine dependence; I10 Essential (primary) hypertension; E78.5 Hyperlipidemia, unspecified; K21.9 Gastro-esophageal reflux disease without esophagitis; I48.0 Paroxysmal atrial fibrillation; Z79.82 Long term (current) use of aspirin; Z79.899 Other long term (current) drug therapy; Z79.01 Long term (current) use of anticoagulants; Z03.818 Encounter for observation for suspected exposure to other biological agents ruled out
CPT/HCPCS: 43239; 88305 ×2; U0003; J2704; C9803; 731; 87635; 88342

== ENCOUNTER → 2020-10-21 | Outpatient (CLI) | payer MEDICARE ==
--- NOTE | 2020-10-22 13:23 | RADIOLOGY REPORT (SQ) ---
EXAM DESCRIPTION: U/S THYROID/SFT TISS HD NECK IMAGES COMPLETED DATE/TIME: 10/21/2020 4:47 pm REASON FOR STUDY: (E04.1)NONTOXIC SINGLE THYROID NODULE E04.1 NONTOXIC SINGLE THYROID NODULE COMPARISON: None. TECHNIQUE: Dynamic and static hung-scale images acquired of the thyroid gland. Selected additional c olor/power Doppler images recorded. All images stored to PACS. LIMITATIONS: None. FINDINGS: RIGHT LOBE: Normal size. Homogeneous echotexture. 3 mm spongiform nodule. TI-Rads 1. LEFT LOBE: Normal size. Homogeneous echotexture. 10 mm isoechoic solid nodule with smooth margins. TI-RADS 3. ISTHMUS: 7 mm. Homogeneous echotexture. No cystic or solid masses. OTHER: No other significant finding. IMPRESSION: TI-RADS 3 nodule left lobe. COMMENT: The [employer] ([employer]) Thyroid Imaging Reporting And Data System (TI-RADS ) is an ultrasound feature based summed scoring system of risk categorization and management recommen dations for thyroid nodules. TI-RADS assessment categories are as follows: 0 - Incomplete exam: Additional imaging or comparison to prior examinations recommended. 1. - Benign: Fine-needle aspiration or follow-up not routinely recommended in the absence of clinical change. 2. - Not suspicious: Fine-needle aspiration or follow-up not routinely recommended in the absence of clinical change. 3. - Mildly suspicious: Fine-needle aspiration recommended if greater than or equal to 2.5 cm in size . Ultrasound follow-up recommended if greater than or equal to 1.5 cm in size. Follow-up at 1, 3, and 5 years. 4. - Moderately suspicious: Fine-needle aspiration recommended if greater than or equal to 1.5 cm in size. Ultrasound follow-up recommended if greater than or equal to 1.0 cm in size. Follow-up at 1, 2, 3, and 5 years. 5. - Highly suspicious: Fine-needle aspiration recommended if greater than or equal to 1.0 cm in size . Ultrasound follow-up recommended if greater than or equal to 0.5 cm in size. Follow-up at 1, 2, 3, and 5 years. TECHNICAL DOCUMENTATION: JOB ID: [id number] [employer]- All Rights Reserved Reading location - IP/workstation name: [email or web address]
== END ==
LOC: RAD 16:25
PROVIDERS: ATTEND Physician Assistant
DX: E04.1 Nontoxic single thyroid nodule (principal)
CPT/HCPCS: 76536